=== PATIENT | female | born 1955 | race African-American/Black ===

== ENCOUNTER → 2016-05-03 | Outpatient (CLI) | payer MEDICARE, OTHER ==
[2016-02-14 23:53] VITALS: BP 168/88
[~2016-05-03] MED LIST: ALPR2TAB2 PO; BUSP5TAB PO; DIVA500T2 PO; ESTR1TAB15 PO; GABAPENTIN; HYDR-2666 PO; HYDR-971 PO; IOHEXOL 180 MG/ML 10 ML VIAL. ONE; LISINOPRIL; LOSA1TAB17 PO; METHADONE; NAPR250T2 PO; OMEP40CA5 PO; PRED50TA PO; VALP250C2 PO; XANAX; albuterol; depakote; lortab; methylPREDNISolone ACETATE 40 MG/ML VIAL. ONE; methylPREDNISolone ACETATE 80 MG/ML VIAL. ONE; norvasc
--- NOTE | 2016-05-04 06:23 | PAIN ---
DATE OF SERVICE: 05/03/2016 INITIAL CONSULTATION FOR PAIN CLINIC CHIEF COMPLAINT: Low back and left greater than right lower extremity pain. HISTORY OF PRESENT ILLNESS: This is a 61-year-old female who presents with history of pain for many years, gradually increasing over the years in the low back and bilateral lower extremities. The patient has had lumbar surgery in 1999 and again in 2013, at [facility] with good initial results, but now significant pain in the low back and lower extremities as noted, mostly in the posterior gluteus, posterior thigh, worse on the left side into the knee on the left side and into the hip and the gluteus on the right side. The patient reports sharp and shooting, stabbing, aching, ____ burning and cold sensations. The patient reports it awakens her from sleep at least once or twice at night, does affect her bowel and bladder control, but no incontinence and reports some increased urgency when the pain is worse, also affects her ability to walk, she is using a cane in her right hand to ambulate. The patient did have a MRI scan dated 03/20/2016, lumbar spine showing moderately severe diffuse lumbar spondylosis, central spinal and bilateral foraminal stenosis at L5-S1 with severe left foraminal narrowing at this level secondary to facet arthropathy and probable broad-based disk herniation and also bilateral neural foraminal narrowing, which is prominent at L4-L5 secondary to disk bulging and facet arthropathy. The patient's disability rate of 0-10, 10 being the worst is at 9 with family and home responsibilities, 10 with recreation, social activity, occupation, sexual behavior, self-care and life support activities. The patient has tried counseling, also started physical therapy in the past, has had epidural injections in 2007, all of which were helpful, but only temporary and the patient did end up having surgery in 2013 once again. PAST MEDICAL HISTORY: Significant for hypertension, hearing loss, schizophrenia, asthma, smoking, arthritis, seizures. PREVIOUS SURGERY: Includes lumbar diskectomy and fusion in 1999 and 2013. CURRENT MEDICATIONS: Include naproxen, hydrocodone, prednisone, Xanax, losartan, buspirone, valproic acid, estradiol and omeprazole. ALLERGIES: THE PATIENT IS ALLERGIC TO PENICILLIN. FAMILY HISTORY: Significant for heart attack, seizures, hypertension. SOCIAL HISTORY: The patient smokes daily, 1-2 packs currently; uses alcohol only occasionally. He is , lives with her spouse locally in [place], [place]. REVIEW OF SYSTEMS: The patient's review of systems is positive for those items mentioned in the history of present illness. All systems reviewed and otherwise negative. It is complete, full and well documented on the patient's chart. PHYSICAL EXAMINATION: VITAL SIGNS: The patient's blood pressure is 115/76, pulse 63, respirations 18, temperature 97.6 degrees Fahrenheit, height is 4 feet 11 inches, weight is 131 pounds. GENERAL: The patient is awake, alert, oriented, appropriate, very pleasant demeanor. HEENT: Head shows normocephalic, atraumatic. Extraocular movements are intact and symmetrical. Oral cavity, mucous membranes are moist and pink. Dentition is intact. NECK: Shows anterior throat supple without palpable lymphadenopathy noted. Swallow reflex is symmetrical. Neck shows full rotational motion of the cervical spine without difficulty including extension and flexion. CHEST: Shows normal on inspection. Breath sounds are clear to auscultation bilaterally. HEART: Shows S1 and S2 clear. No murmurs are auscultated. ABDOMEN: Soft, obese, nontender, nondistended. No palpable organomegaly. No rebound or guarding demonstrated. BACK: Shows spine grossly midline. Some significant flattening of lumbar lordotic curvatures noted, well-healed surgical scars extensive throughout the lumbar distribution in the midline. Lumbar paraspinous musculature shows slightly hypertrophy, but symmetrical in the upper, middle and lower distribution and is tender with palpation throughout only diffusely, but without radiation bilaterally as well. No tenderness over the sacrum or sacroiliac regions. The patient shows good rotational motion both laterally with some minor limitation with extension, but not secondary to pain, secondary to mechanical movement, inability, the patient flexes forward about 45 degrees without significant difficulty or pain reported. EXTREMITIES: Lower extremities show deep tendon reflexes at 1+ in the patellar and tendo calcaneus tendons are equal. Motor exam is approximately 4 on a scale of 5 with left dorsiflexion and extension and 5/5 on the right, quadriceps and hamstring flexion are 5/5 bilaterally. Peripheral pulses are 1+ posterior tibial and dorsalis pedis pulses. No peripheral edema is noted. No clubbing, no cyanosis. Lower extremities are warm and dry to touch, equal in color and appearance. The patient's straight leg raise noted to be positive on the left at about 45 degrees with decrease in knee flexion, right side is negative. Gaenslen's and Baron's maneuvers are negative bilaterally. The patient is able to stand, has difficulty with trying to stand on her toes, walking with a shuffling gait, appears to favor her left lower extremity slightly, but using a cane in her right hand to ambulate. IMPRESSION: 1. This is a 61-year-old female with long history of low back pain, worse over the past 2 years or so with increasing pain in the low back and left greater than right lower extremity. 2. MRI scan of lumbar spine as noted. 3. Hypertension. 4. Arthritis. 5. Seizure disorder. 6. Schizophrenia. PLAN: Options were discussed with the patient including conservative medical management, physical therapy, interventional techniques. She would like to pursue interventional techniques and these have worked well for her in the past. We discussed the lumbar epidural steroid injection using description as well as anatomical models to describe the procedure. Risks were then discussed including, but not limited to bleeding, infection, possibility of epidural hematoma and subsequent neurologic compromise, dural puncture, headaches, spinal cord and/or nerve damage, side effects of steroid medication and poor results regarding pain control. The patient understands and wishes to proceed. The patient will return to the clinic in approximately 2 weeks for followup, was counseled on return appointment, activity level and side effects to be aware of. DIAGNOSIS: Lumbar radiculopathy with lumbar herniated disk and post-lumbar laminectomy syndrome. PROCEDURE: Lumbar epidural steroid injection in translaminar approach at L5-S1 level using C-arm fluoroscopic guidance under sterile prep and drape using local anesthetic. Medications injected are 120 mg of Depo-Medrol plus 10 mL of preservative-free normal saline, 2 mL of Isovue contrast. CONDITION AT DISCHARGE: Stable. The patient tolerated the procedure well, had no complications. MARTINEZ MCCOY MD DR: KATRINA/pratibha JOB#: [id number] / [id number]
== END | disposition home or self-care (01) ==
LOC: PNCL 08:29
PROVIDERS: ATTEND Anesthesiology
DX: M51.16 Intervertebral disc disorders with radiculopathy, lumbar region (principal); M96.1 Postlaminectomy syndrome, not elsewhere classified; I10 Essential (primary) hypertension; M19.90 Unspecified osteoarthritis, unspecified site; G40.909 Epilepsy, unspecified, not intractable, without status epilepticus; F20.9 Schizophrenia, unspecified; F17.210 Nicotine dependence, cigarettes, uncomplicated; Z72.89 Other problems related to lifestyle
CPT/HCPCS: 62323; J1030; J1040; 62327

== ENCOUNTER → 2016-05-24 | Outpatient (CLI) | payer MEDICARE, OTHER ==
[2016-02-14 23:53] VITALS: BP 168/88
--- NOTE | 2016-05-24 10:22 | PAIN ---
DATE OF SERVICE: 05/24/2016 PROGRESS NOTE FOR PAIN CLINIC DIAGNOSES: Lumbar radiculopathy with lumbar herniated disk and lumbar post-laminectomy syndrome. HISTORY OF PRESENT ILLNESS: The patient is a 61-year-old female, who returns for followup status post lumbar epidural steroid injection x 1 on 05/03/2016. The patient reports only about 50% improvement for 1 day and then the pain, to return in her low back and left lower extremity. Still some spasms radiating shooting pain in the low back and left leg as it was previously rated 10 on a scale of 10. The patient reports no new motor or sensory deficits, no new bowel or bladder incontinence, but still significant pain versus walking, standing, change in positions, still awakens her from sleep at night. The patient does have an appointment to follow up with her neurosurgeon tomorrow. PHYSICAL EXAMINATION: VITAL SIGNS: Blood pressure 120/79, pulse 71, respirations 18, temperature 97.8 degrees Fahrenheit, height is 4 feet 11 inches, weighs 121 pounds. GENERAL: The patient is awake, alert, oriented, appropriate, very pleasant demeanor. HEENT: Head shows normocephalic, atraumatic. Extraocular movements are intact and symmetrical. Oral cavity, mucous membranes are moist and pink. Dentition is intact. NECK: Shows anterior throat supple without palpable lymphadenopathy noted. Swallow reflex is symmetrical. CHEST: Shows normal on inspection. Breath sounds clear to auscultation bilaterally. HEART: Shows S1 and S2 clear. ABDOMEN: Soft, nontender, nondistended. No palpable organomegaly noted. No rebound or guarding demonstrated. BACK: Shows spine grossly midline. Significant flattening of lumbar lordotic curvature with well healed extensive surgical scar, the distribution in the midline shows some moderate tenderness with palpation in the paraspinous musculature throughout the upper, middle and lower distribution bilaterally, but without radiation. EXTREMITIES: Lower extremities showed deep tendon reflexes 1+ in the patellar tendons. Motor exam is approximately 4 on a scale of 5 left lower extremity and 5/5 on the right with dorsiflexion, extension, quadriceps and hamstrings flexion. Options were discussed with the patient. We will proceed with a second lumbar epidural steroid injection today with fluoroscopic guidance. Risks were again discussed including but not limited to bleeding, infection, possibility of epidural hematoma, subsequent neurologic compromise, dural puncture, headaches, spinal cord and/or nerve damage, side effects of steroid medication and poor results regarding pain control. The patient understands and wishes to proceed. The patient will return to the clinic in approximately 2 weeks for followup. She is counseled on return appointment, activity level, and side effects to be aware of. DIAGNOSES: Lumbar radiculopathy with lumbar herniated disk and post-lumbar laminectomy syndrome. PROCEDURES: Lumbar epidural steroid injection in translaminar approach at L5-S1 level using C-arm fluoroscopic guidance under sterile prep and drape using local anesthetic. MEDICATIONS INJECTED: 120 mg Depo-Medrol plus 10 mL of preservative-free normal saline and 2 mL Isovue for contrast. CONDITION AT DISCHARGE: Stable. The patient tolerated procedure well, had no complications. MARTINEZ MCCOY MD DR: KATRINA/pratibha JOB#: [id number] / [id number]
== END | disposition home or self-care (01) ==
LOC: PNCL 08:41
PROVIDERS: ATTEND Anesthesiology
DX: M51.16 Intervertebral disc disorders with radiculopathy, lumbar region (principal); M96.1 Postlaminectomy syndrome, not elsewhere classified
CPT/HCPCS: 62323; J1030; J1040

== ENCOUNTER → 2016-06-22 | Outpatient (CLI) | payer MEDICARE, OTHER ==
[~2016-06-22] VITALS: Ht 149.9 cm; Wt 58.1 kg
[~2016-06-22] MED LIST changes: +CONTRAST GIVEN MC PRN; +ESCI10TA PO; +IOHEXOL 180 MG/ML 10 ML VIAL. IT ONE; -IOHEXOL 180 MG/ML 10 ML VIAL. ONE; +LIDOCAINE 1% / SOD BICARB 8.4% 20 ML VIAL. IJ ONE; +LISI-334 PO; +PARO20TA3 PO; +PROAIR HFA8.5 GM INH; +TIZA4TAB PO; -methylPREDNISolone ACETATE 40 MG/ML VIAL. ONE; -methylPREDNISolone ACETATE 80 MG/ML VIAL. ONE
[2016-06-22 12:52] VITALS: BP 117/68
[2016-06-22 14:30] VITALS: BP 117/89
[2016-06-22 15:00] VITALS: BP 126/68
[2016-06-22 15:30] VITALS: BP 97/61
--- NOTE | 2016-06-22 15:34 | RAD ---
Fluoroscopic lumbar myelogram and CT lumbar spine with intrathecal contrast History: Back pain. Extensive low back surgery. Comparison: CT lumbar spine 09/25/2014. Fluoroscopic lumbar myelogram Procedure narrative: Risks and benefits of the procedure were discussed with the patient. Written informed consent was obtained. Patient was laid prone on the fluoroscopy table. Secondary to extensive lumbar surgery, examination required use of a larger bore, 22-gauge spinal needle. Initially, the L4-5 level was targeted. The skin was prepped and draped in usual sterile fashion. Local anesthesia was provided with 1% lidocaine. Under fluoroscopic guidance, 22-gauge spinal needle was attempted to be inserted the thecal sac at L4-5. Inner stylet was removed. No CSF was returned. Advancement of needle was somewhat difficult secondary to patient's inability to stay still and requiring change in approach. At one time, some blood returned, but did not clear, it was uncertain if needle was thecal sac versus epidural venous plexus. Additional adjustments of the needle failed to return clear CSF. It was then decided to attempt at the L2-3 level. Patient agreed after some discussion to approach at a different level. As the skin over this area was already prepped with Betadine, local anesthesia was provided with 1% lidocaine. A new 22-gauge spinal needle was inserted into the thecal sac at the L2-3 level. Inner stylet was removed and clear CSF was returned. Under intermittent fluoroscopic visualization, 15 mL of Omnipaque 180 myelographic contrast were inserted into the thecal sac. The needle was then removed and local pressure was applied. Patient tolerated the procedure well and there were no acute ill effects. Patient was sent to the CT scanner for post procedure imaging followed by a monitoring at the observation area. Total fluoroscopic time was 1.3 minutes. 6 total fluoroscopic images were obtained. Findings: Myelographic images demonstrate no evidence of myelographic block. 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 There are 5 lumbar type vertebral bodies. Extensive laminectomy changes are seen from L1 through the L5 level. Degenerative disc disease with loss of disc height and anterior epidural defect can be seen at L1-2. Lesser degenerative disc disease is seen at other levels. There is no spondylolisthesis with flexion or extension. CT lumbar spine with intrathecal contrast Technique: After administration of intrathecal contrast (see procedure above), helical CT of the lumbar spine was performed. Axial, sagittal, and coronal reconstructions were obtained. One or more of the following individualized dose reduction techniques were utilized for the study: Automated exposure control Adjustment of mA and/or kV according to patient's size Use of iterative reconstruction technique. Findings: Alignment of the lumbar spine appears anatomic. There is no evidence of acute fracture or acute malalignment. No prevertebral soft tissue swelling is identified. No spondylolisthesis is appreciated. The conus medullaris terminates normally at the inferior L1 level. Extensive laminectomy changes are seen from L1 through L5. T12-L1 level is unremarkable. L1-2 level demonstrates anterior epidural defect which is favored represent a posterior disc osteophyte complex. Spinal canal is widely patent. There is bilateral facet hypertrophy. There is severe right and moderate-severe left neural foraminal narrowing. L2-3 level demonstrates narrowing of the disc space. Marginal disc osteophyte is seen. No significant posterior disc bulge is identified. There is mild bilateral facet hypertrophy. There is mild-moderate bilateral neural foraminal narrowing. L3-4 level demonstrates minimal disc bulge. There is right greater than left facet hypertrophy including facet osteophyte encroaching into the spinal canal at the right aspect. Laminectomy at this level was is not as wide as at the other levels. There is asymmetric posterior effacement of the right aspect of the thecal sac. Overall, there is thought to be mild spinal canal narrowing. There is mild-moderate bilateral neural foraminal narrowing. L4-5 level demonstrates mild transverse narrowing of the thecal sac with transverse dimension of 8 mm, although overall, no significant spinal canal stenosis identified. Moderate-severe bilateral facet hypertrophy is seen. There is moderate-severe left and moderate right neural foraminal narrowing. L5-S1 level demonstrates advanced bilateral facet hypertrophy. There is degenerative disc disease with vacuum disc phenomenon and loss of disc height. There is minimal anterior epidural defect, which could be small disc bulge. There is focal moderate narrowing of the thecal sac with AP dimension measuring 6 mm and some crowding of the nerve roots; thecal sac narrowing is probably secondary to postsurgical scarring. Moderate bilateral neural foraminal narrowing is seen. Impression: 1. Extensive laminectomy changes from L1 through L5. 2. Mild spinal canal narrowing at L3-4. 3. Focal moderate narrowing of the thecal sac is seen at L5-S1, probably secondary to postsurgical scarring. 4. L1-2 level demonstrates posterior disc osteophyte complex as well as bilateral facet hypertrophy creating severe right and moderate-severe left neural foraminal narrowing. 5. Lesser neural foraminal narrowing is seen at other levels as described above.
[2016-06-22 16:00] VITALS: BP 111/66
[2016-06-22 16:30] VITALS: BP 117/69
== END | disposition home or self-care (01) ==
LOC: RAD 12:06
PROVIDERS: ATTEND Neurological Surgery
DX: M54.5 Low back pain (principal)
CPT/HCPCS: 72132; 72265

== ENCOUNTER 2017-07-22 09:04 | Emergency (ER) | payer MEDICARE, OTHER ==
[2017-07-22] MEDS: HYDROcodone/APAP 5/325MG 1 TAB TABLET PO (10:18)
[2017-07-22] MEDS: CYCLOBENZAPRINE 10 MG TABLET. PO (10:18)
[2017-07-22] MEDS: NAPROXEN 500 MG TABLET PO (10:18)
== END 2017-07-22 10:50 | disposition home or self-care (01) ==
LOC: ER 09:04
DX: S30.0XXA Contusion of lower back and pelvis, initial encounter (principal); I10 Essential (primary) hypertension; Z90.710 Acquired absence of both cervix and uterus; Z88.0 Allergy status to penicillin; W18.39XA Other fall on same level, initial encounter; Y93.H2 Activity, gardening and landscaping; Y99.8 Other external cause status; Y92.89 Other specified places as the place of occurrence of the external cause
CPT/HCPCS: 72100; 99284

== ENCOUNTER 2018-01-14 09:46 | Emergency (ER) | payer MEDICARE, OTHER ==
[~2018-01-14] VITALS: Ht 149.9 cm; Wt 54.9 kg
[~2018-01-14 09:46] MED LIST changes: +BENZ100C PO; -CONTRAST GIVEN MC PRN; +DOXY100T9 PO; -ESCI10TA PO; +ESCITALOPRAM OX10 MG PO; +ESOM20CA PO; -HYDR-2666 PO; +HYDR-2758 PO; +HYDR-3164 PO; -HYDR-971 PO; -IOHEXOL 180 MG/ML 10 ML VIAL. IT ONE; -LIDOCAINE 1% / SOD BICARB 8.4% 20 ML VIAL. IJ ONE; -LOSA1TAB17 PO; +LOSA1TAB22 PO; +METH-37 PO; -NAPR250T2 PO; +NAPR250T6 PO; +TRAM50TA PO
[2018-01-14 11:20] VITALS: BP 190/93
[2018-01-14 11:29] LABS: BILIRUBIN,URINE NEGATIVE (NEG); CLARITY,URINE CLEAR; COLOR,URINE YELLOW; NITRITE,URINE NEGATIVE (NEG); PH,URINE 7.5; PROTEIN,URINE NEGATIVE (NEG-TRACE); SQUAMOUS EPITHELIAL CELL,UR MOD /LPF; UROBILINOGEN,URINE 0.2 mg/dL (0.2 mg/dL)
[2018-01-14 11:30] LABS: BACTERIA,URINE FEW /HPF (0-FEW); WBC,URINE 0 /HPF (0-4)
--- NOTE | 2018-01-14 11:34 | RAD ---
Three-view lumbar spine series Clinical indications: Low back pain after a fall 2 days ago. COMPARISON: July 22, 2017. FINDINGS: Mild levoscoliosis is seen which is stable. No compression fracture or discitis or osteolytic process or anterolisthesis is evident. Degenerative endplate spurring and mild disc space narrowing is seen throughout the lumbar spine which is stable. Again seen is a laminectomy from L1 through L5. IMPRESSION: Stable study. No acute compression fracture. Electronically signed by: Ryan Granger MD (01/14/2018 11:30 AM) [facility]
--- NOTE | 2018-01-14 11:37 | PHYS DOC ---
Past Medical History Past Medical History: Bronchitis, Hypertension, Seizure Additional Past Medical Histor: seizures Past Surgical History: Hysterectomy, Other Additional Past Surgical Histo: back sx, hernia, bilat rotator cuff Alcohol Use: Occasionally Drug Use: Cocaine Adult General Chief Complaint Chief Complaint: LOWER BACK PAIN OR INJURY [facility] HPI Patient is a 62 year old [f__sex] who presents with [] Review of Systems Review of Systems Constitutional: Denies fever or chills [] Eyes: Denies change in visual acuity, redness, or eye pain [] HENT: Denies nasal congestion or sore throat [] Respiratory: Denies cough or shortness of breath [] Cardiovascular: No additional information not addressed in HPI [] GI: Denies abdominal pain, nausea, vomiting, bloody stools or diarrhea [] : Denies dysuria or hematuria [] Musculoskeletal: Denies back pain or joint pain [] Integument: Denies rash or skin lesions [] Neurologic: Denies headache, focal weakness or sensory changes [] Endocrine: Denies polyuria or polydipsia [] All other systems were reviewed and found to be within normal limits, except as documented in this note. Allergies Allergies Allergies Coded Allergies Type Severity Reaction Last Updated Verified Penicillins Allergy Intermediate itching 10/27/13 Yes Physical Exam Physical Exam Constitutional: Well developed, well nourished, no acute distress, non-toxic appearance. [] HENT: Normocephalic, atraumatic, bilateral external ears normal, oropharynx moist, no oral exudates, nose normal. [] Eyes: PERRLA, EOMI, conjunctiva normal, no discharge. [] Neck: Normal range of motion, no tenderness, supple, no stridor. [] Cardiovascular:Heart rate regular rhythm, no murmur [] Lungs & Thorax: Bilateral breath sounds clear to auscultation [] Abdomen: Bowel sounds normal, soft, no tenderness, no masses, no pulsatile masses. [] Skin: Warm, dry, no erythema, no rash. [] Back: No tenderness, no CVA tenderness. [] Extremities: No tenderness, no cyanosis, no clubbing, ROM intact, no edema. [] Neurologic: Alert and oriented X 3, normal motor function, normal sensory function, no focal deficits noted. [] Psychologic: Affect normal, judgement normal, mood normal. [] Current Patient Data Lab Values Laboratory Tests Test 11/19/18 10:33 Urine Collection Type Unknown Urine Color Yellow Urine Clarity Clear Urine pH 7.5 Urine Specific [place] 1.020 Urine Protein Negative mg/dL (NEG-TRACE) Urine Glucose (UA) Negative mg/dL (NEG) Urine Ketones (Stick) Negative mg/dL (NEG) Urine Blood Negative (NEG) Urine Nitrite Negative (NEG) Urine Bilirubin Negative (NEG) Urine Urobilinogen Dipstick 0.2 mg/dL (0.2 mg/dL) Urine Leukocyte Esterase Negative (NEG) Urine RBC 1-2 /HPF (0-2) Urine WBC 0 /HPF (0-4) Urine Squamous Epithelial Cells Mod /LPF Urine Bacteria Few /HPF (0-FEW) EKG EKG [] Radiology/Procedures Radiology/Procedures [] PATIENT: YULY SUAZO ACCOUNT: [id number] : 1955 LOCATION: ER AGE: 62 SEX: F EXAM STATUS: REG ER ORD. PHYSICIAN: SHARLENE JACOBS APRN REASON: fell last night, point spinal tenderness PROCEDURE: LUMBAR SPINE 2-3V Three-view lumbar spine series Clinical indications: Low back pain after a fall 2 days ago. COMPARISON: July 22, 2017. FINDINGS: Mild levoscoliosis is seen which is stable. No compression fracture or discitis or osteolytic process or anterolisthesis is evident. Degenerative endplate spurring and mild disc space narrowing is seen throughout the lumbar spine which is stable. Again seen is a laminectomy from L1 through L5. IMPRESSION: Stable study. No acute compression fracture. Electronically signed by: Yumiko Granger MD (01/14/2018 11:30 AM) [facility] DICTATED and SIGNED BY: YUMIKO GRANGER MD DATE: 01/14/18 1127 Course & Med Decision Making Course & Med Decision Making Pertinent Labs and Imaging studies reviewed. (See chart for details) [] Dragon Disclaimer Dragon Disclaimer This electronic medical record was generated, in whole or in part, using a voice recognition dictation system. Departure Departure Impression: Primary Impression: Back pain Additional Impression: Fall Disposition: 01 HOME, SELF-CARE Condition: STABLE Referrals: SONIA TILLEY MD (PCP) Patient Instructions: Back Pain, Adult, Fall Prevention and Home Safety Additional Instructions: You may take ibuprofen or Tylenol for pain. There were no acute fractures noted on your x-ray. Follow-up with your primary care provider in one week if not improving or return to the emergency department if worsening. Problem Qualifiers SHARLENE JACOBS [employer] Jan 14, 2018 11:37
[2018-01-14] MEDS ORDERED: HYDROcodone/APAP 5/325MG 1 TAB TABLET PO ONE (11:45)
== END 2018-01-14 12:10 | disposition home or self-care (01) ==
LOC: ER 09:46
DX: M54.5 Low back pain (principal); G89.11 Acute pain due to trauma; M53.3 Sacrococcygeal disorders, not elsewhere classified; I10 Essential (primary) hypertension; Z90.710 Acquired absence of both cervix and uterus; Z98.890 Other specified postprocedural states; W01.0XXA Fall on same level from slipping, tripping and stumbling without subsequent striking against object, initial encounter; Y93.89 Activity, other specified; Y92.89 Other specified places as the place of occurrence of the external cause; Y99.8 Other external cause status
CPT/HCPCS: 72100; 81001; 99284

== ENCOUNTER 2018-01-23 10:11 | Emergency (ER) | payer MEDICARE, OTHER ==
[~2018-01-23] VITALS: Ht 152.4 cm; Wt 59.0 kg
[~2018-01-23 10:11] MED LIST changes: -HYDR-2758 PO; +HYDR-2761 PO
[2018-01-23 10:48] VITALS: BP 164/81
[2018-01-23] MEDS ORDERED: predniSONE 20 MG TABLET PO ONE (11:45)
[2018-01-23] MEDS ORDERED: LIDOCAINE (700MG/PATCH) PATCH. TD SCH (12:00)
[2018-01-23] MEDS ORDERED: LIDO700A39 TP (12:56)
[2018-01-23] MEDS ORDERED: PRED20TA PO (12:56)
--- NOTE | 2018-01-23 12:56 | PHYS DOC ---
Past Medical History Past Medical History: Bronchitis, Hypertension, Seizure Additional Past Medical Histor: seizures; cocaine use Past Surgical History: Hysterectomy, Other Additional Past Surgical Histo: back sx, hernia, bilat rotator cuff Alcohol Use: Occasionally Drug Use: Cocaine Adult General Chief Complaint Chief Complaint: LOWER BACK PAIN OR INJURY [facility] HPI Patient is a 62 year old [f__sex] who presents with [] Review of Systems Review of Systems Constitutional: Denies fever or chills [] Eyes: Denies change in visual acuity, redness, or eye pain [] HENT: Denies nasal congestion or sore throat [] Respiratory: Denies cough or shortness of breath [] Cardiovascular: No additional information not addressed in HPI [] GI: Denies abdominal pain, nausea, vomiting, bloody stools or diarrhea [] : Denies dysuria or hematuria [] Musculoskeletal: Denies back pain or joint pain [] Integument: Denies rash or skin lesions [] Neurologic: Denies headache, focal weakness or sensory changes [] Endocrine: Denies polyuria or polydipsia [] All other systems were reviewed and found to be within normal limits, except as documented in this note. Current Medications Current Medications Current Medications Medications (Trade) Dose Ordered Sig/Madisyn Start Time Stop Time Status Last Admin Dose Admin Lidocaine (Lidoderm) 1 patch DAILY 01/23/18 12:00 01/23/18 11:59 1 PATCH Miscellaneous (Lidoderm Patch Removal) 1 ea QHS 01/23/18 21:00 Prednisone (Prednisone) 40 mg 1X ONCE 01/23/18 11:45 01/23/18 11:46 DC 01/23/18 11:58 40 MG Allergies Allergies Allergies Coded Allergies Type Severity Reaction Last Updated Verified Penicillins Allergy Intermediate itching 10/27/13 Yes Physical Exam Physical Exam Constitutional: Well developed, well nourished, no acute distress, non-toxic appearance. [] HENT: Normocephalic, atraumatic, bilateral external ears normal, oropharynx moist, no oral exudates, nose normal. [] Eyes: PERRLA, EOMI, conjunctiva normal, no discharge. [] Neck: Normal range of motion, no tenderness, supple, no stridor. [] Cardiovascular:Heart rate regular rhythm, no murmur [] Lungs & Thorax: Bilateral breath sounds clear to auscultation [] Abdomen: Bowel sounds normal, soft, no tenderness, no masses, no pulsatile masses. [] Skin: Warm, dry, no erythema, no rash. [] Back: No tenderness, no CVA tenderness. [] Extremities: No tenderness, no cyanosis, no clubbing, ROM intact, no edema. [] Neurologic: Alert and oriented X 3, normal motor function, normal sensory function, no focal deficits noted. [] Psychologic: Affect normal, judgement normal, mood normal. [] Current Patient Data Vital Signs Vital Signs Date Time Temp Pulse Resp B/P (MAP) Pulse Ox O2 Delivery O2 Flow Rate FiO2 01/23/18 10:48 97.9 72 16 164/81 (108) 100 Room Air 97.9 EKG EKG [] Radiology/Procedures Radiology/Procedures [] Course & Med Decision Making Course & Med Decision Making 1245: On reevaluation patient reports following prednisone and Lidoderm application her lower back pain has improved. She is ambulatory at bedside unassisted with use of her cane. With patient reporting pain she is experiencing similar to when she was seen in the ER previously with no acute change no imaging or tests done at this time. Patient will follow-up with orthopedic doctor for further care and reevaluation. Will provide referral information with discharge paperwork. [] Dragon Disclaimer Dragon Disclaimer This electronic medical record was generated, in whole or in part, using a voice recognition dictation system. Departure Departure Impression: Primary Impression: Back pain Disposition: HOME, SELF-CARE Condition: STABLE Referrals: SONIA TILLEY MD (PCP) Patient Instructions: Back Pain, Adult Additional Instructions: You should call as soon as possible to schedule appointment with orthopedic doctor for further care and evaluation. Ibuprofen and/or tylenol as directed on container for pain as needed. Heat/ice compress to affected area every 3-4 hours for 20-30 minutes at a time. Scripts Prednisone (PREDNISONE) 20 Mg Tablet 40 MG PO DAILY, #4 TAB 0 Refills start 01/24/18 Prov: SUSANNAH FRANK APRN 01/23/18 Lidocaine (Lidocaine) 1 Each Adh..patch 1 EACH TP PRN Q12HR PRN for PAIN, #5 PATCH 0 Refills Apply to painful area on back- apply every 12 hours as needed- remove patch every 12 hours Prov: SUSANNAH FRANK APRN 01/23/18 REFFITT,SUSANNAH Centeno APRN Jan 23, 2018 12:56
[2018-01-23] MEDS ORDERED: PATCH REMOVAL. MC SCH (21:00)
== END 2018-01-23 13:06 | disposition home or self-care (01) ==
LOC: ER 10:11
DX: M54.5 Low back pain (principal); I10 Essential (primary) hypertension; Z98.890 Other specified postprocedural states; Z90.710 Acquired absence of both cervix and uterus; Z88.0 Allergy status to penicillin
CPT/HCPCS: 99283; J7512

== ENCOUNTER 2018-05-15 10:52 | Emergency (ER) | payer MEDICARE, OTHER ==
[~2018-05-15] VITALS: Ht 149.9 cm; Wt 58.1 kg
[~2018-05-15 10:52] MED LIST changes: +ALBU2.5V8 INH; +LIDO700A39 TP; +PRED20TA PO; -PROAIR HFA8.5 GM INH
[2018-05-15 11:20] VITALS: BP 136/72
[2018-05-15] MEDS ORDERED: AZIT250T6 PO (12:03)
[2018-05-15] MEDS ORDERED: BENZ100C PO (12:03)
[2018-05-15] MEDS ORDERED: MELO7.5T29 PO (12:03)
--- NOTE | 2018-05-15 12:03 | PHYS DOC ---
Past Medical History Past Medical History: Bronchitis, Hypertension, Seizure Additional Past Medical Histor: seizures; cocaine use Past Surgical History: Hysterectomy, Other Additional Past Surgical Histo: back sx, hernia, bilat rotator cuff Alcohol Use: Occasionally Drug Use: Cocaine Social History Narrative: pt states she smoked cocaine day before last Adult General Chief Complaint Chief Complaint: Congestion HPI HPI Patient is a 63 year old female who presents with anterior knee pain that comes and goes and she does have a history of arthritis. Patient is ambulatory. Patient states she also has nasal congestion and a cough with green mucus production. Patient states this been going on for the last week. Patient denies nausea, vomiting, diarrhea, fever, headache, dizziness, shortness of air, chest pain. Review of Systems Review of Systems Constitutional: Denies fever or chills [] Eyes: Denies change in visual acuity, redness, or eye pain [] HENT: Denies nasal congestion or sore throat [] Respiratory: cough and nasal congestion. Denies shortness of breath [] Cardiovascular: No additional information not addressed in HPI [] GI: Denies abdominal pain, nausea, vomiting, bloody stools or diarrhea [] : Denies dysuria or hematuria [] Musculoskeletal: Denies back pain or Left knee joint pain [] Integument: Denies rash or skin lesions [] Neurologic: Denies headache, focal weakness or sensory changes [] All other systems were reviewed and found to be within normal limits, except as documented in this note. Allergies Allergies Allergies Coded Allergies Type Severity Reaction Last Updated Verified Penicillins Allergy Intermediate itching 10/27/13 Yes Physical Exam Physical Exam Constitutional: Well developed, well nourished, no acute distress, non-toxic appearance. [] HENT: Normocephalic, atraumatic, bilateral external ears normal, oropharynx moist, no oral exudates, nose normal. [] Eyes: PERRLA, EOMI, conjunctiva normal, no discharge. [] Neck: Normal range of motion, no tenderness, supple, no stridor. [] Cardiovascular:Heart rate regular rhythm, no murmur [] Lungs & Thorax: Bilateral upper breath sounds clear to auscultation, low breath sounds diminished[] Abdomen: Bowel sounds normal, soft, no tenderness, no masses, no pulsatile masses. [] Skin: Warm, dry, no erythema, no rash. [] Back: No tenderness, no CVA tenderness. [] Extremities: No tenderness, no cyanosis, no clubbing, ROM intact, no edema. [] Neurologic: Alert and oriented X 3, normal motor function, normal sensory function, no focal deficits noted. [] Psychologic: Affect normal, judgement normal, mood normal. [] Current Patient Data Vital Signs Vital Signs Date Time Temp Pulse Resp B/P (MAP) Pulse Ox O2 Delivery O2 Flow Rate FiO2 05/15/18 11:20 97.6 66 18 136/72 (93) 96 Room Air 97.6 EKG EKG [] Radiology/Procedures Radiology/Procedures [] Course & Med Decision Making Course & Med Decision Making Patient is a 63 year old female who presents with anterior knee pain that comes and goes and she does have a history of arthritis. Patient is ambulatory. Patient states she also has nasal congestion and a cough with green mucus production. Patient states this been going on for the last week. Patient denies nausea, vomiting, diarrhea, fever, headache, dizziness, shortness of air, chest pain. Alert And oriented. Ambulatory with a steady gait. Patient is rating her pain a 10 out of 10. Patient's anterior left patella tender with palpation. Patient states that she smoked cocaine yesterday. Lungs are clear to auscultation upper lobes but diminished in lower lobes. Vital signs within normal limits. Afebrile. No extremity edema and no edema of the left knee that she is complaining of pain. Patient has full range of motion of the left knee and there is a positive popliteal pulse. Dragon Disclaimer Dragon Disclaimer This electronic medical record was generated, in whole or in part, using a voice recognition dictation system. Departure Departure Impression: Primary Impression: URI (upper respiratory infection) Additional Impression: Knee pain Disposition: HOME, SELF-CARE Condition: STABLE Referrals: SONIA TILLEY MD (PCP) Patient Instructions: Cough, Adult, Knee Pain Additional Instructions: Call and make an appointment with her primary care provider. Take medication as prescribed. Scripts Meloxicam (MELOXICAM) 7.5 Mg Tablet 1 TAB PO DAILY, #10 TAB Prov: ARVIND JENSEN APRN 05/15/18 Benzonatate (TESSALON PERLE) 100 Mg Capsule 1 CAP PO TID, #21 CAP Prov: ARVIND JENSEN APRN 05/15/18 Azithromycin (AZITHROMYCIN TABLET) 250 Mg Tablet 1 PKG PO UD, #6 TAB Prov: ARVIND JENSEN APRN 05/15/18 Problem Qualifiers Primary Impression: URI (upper respiratory infection) URI type: unspecified URI Qualified Codes: J06.9 - Acute upper respiratory infection, unspecified Additional Impression: Knee pain Chronicity: acute Laterality: left Qualified Codes: M25.562 - Pain in left knee ARVIND JENSEN APRN May 15, 2018 12:03
== END 2018-05-15 12:17 | disposition home or self-care (01) ==
LOC: ER 10:52
DX: M25.562 Pain in left knee (principal); J06.9 Acute upper respiratory infection, unspecified; M19.90 Unspecified osteoarthritis, unspecified site; I10 Essential (primary) hypertension; Z90.710 Acquired absence of both cervix and uterus; Z88.0 Allergy status to penicillin
CPT/HCPCS: 99283

== ENCOUNTER 2018-06-06 16:18 | Observation (INO) | payer MEDICARE, OTHER ==
[~2018-06-06] VITALS: Ht 149.9 cm; Wt 57.4 kg
[~2018-06-06 16:18] MED LIST changes: +AZIT250T6 PO; +MELO7.5T29 PO
[2018-06-06] MEDS ORDERED: IV NORMAL SALINE 1000ML BAG 1,000 ML IV SCH (16:23)
[2018-06-06] MEDS ORDERED: IPRATRPIUM/ALBUTEROL 0.5/2.5MG 3 ML NEBU. NEB ONE (16:30)
[2018-06-06] MEDS ORDERED: methylPREDNISolone SOD SUCC PF 125 MG/2 ML VIAL. IV ONE (16:30)
[2018-06-06 17:46] LABS: BASO % 0 % (0-3); EOS # 0.1 x10^3/uL (0.0-0.7); EOS % 2 % (0-3); HEMATOCRIT 46.3 % (36.0-47.0); LYMPH # 1.7 x10^3/uL (1.0-4.8); LYMPH % 35 % (24-48); MEAN CORPUSCULAR HEMOGLOBIN 27 pg (25-35); MEAN CORPUSCULAR HGB CONC 33 g/dL (31-37); MEAN CORPUSCULAR VOLUME 84 fL (79-100); MONO # 0.2 x10^3/uL (0.0-1.1); MONO % 5 % (0-9); NEUT # 2.8 x10^3uL (1.8-7.7); NEUT % 59 % (31-73); PLATELET COUNT 176 x10^3/uL (140-400); RED BLOOD COUNT 5.54 x10^6/uL (3.50-5.40); RED CELL DISTRIBUTION WIDTH 15.1 % (11.5-14.5); WHITE BLOOD COUNT 4.8 x10^3/uL (4.0-11.0)
--- NOTE | 2018-06-06 18:01 | PHYS DOC ---
Past Medical History Past Medical History: Bronchitis, Hypertension, Seizure Additional Past Medical Histor: seizures; cocaine use (GRACIE KAPLAN MD) Past Surgical History: Hysterectomy, Other Additional Past Surgical Histo: back sx, hernia, bilat rotator cuff (GRACIE KAPLAN MD) Alcohol Use: Occasionally Drug Use: Cocaine (GRACIE KAPLAN MD) Adult General Chief Complaint Chief Complaint: SHORTNESS OF BREATH HPI HPI Patient is a 63 year old female who brought in by EMS because of shortness of breath. Patient complaining of shortness of breath for 2 weeks and states she was seen her physician and taking antibiotic currently. Patient states she had nonproductive cough without fever and chills and complaining of chest soreness after cough. Patient states her cough became worse after she worked with [employer] today and called 911. Patient had active dry cough at arrival to ER and was anxious. (GRACIE KAPLAN MD) Review of Systems Review of Systems Constitutional: Denies fever or chills [] Eyes: Denies change in visual acuity, redness, or eye pain [] HENT: Denies nasal congestion or sore throat [] Respiratory: Reports cough and shortness of breath] Cardiovascular: No additional information not addressed in HPI [] GI: Denies abdominal pain, nausea, vomiting, bloody stools or diarrhea [] : Denies dysuria or hematuria [] Musculoskeletal: Denies back pain or joint pain [] Integument: Denies rash or skin lesions [] Neurologic: Denies headache, focal weakness or sensory changes [] Endocrine: Denies polyuria or polydipsia [] All other systems were reviewed and found to be within normal limits, except as documented in this note. (GRACIE KAPLAN MD) Current Medications Current Medications Current Medications Medications (Trade) Dose Ordered Sig/Madisyn Start Time Stop Time Status Last Admin Dose Admin Albuterol/ Ipratropium (Duoneb) 3 ml 1X ONCE 06/06/18 16:30 06/06/18 16:34 DC 06/06/18 16:38 3 ML Aspirin (Children'S Aspirin) 324 mg 1X ONCE 06/06/18 20:45 06/06/18 20:46 Enoxaparin Sodium (Lovenox 60mg Syringe) 60 mg 1X ONCE 06/06/18 20:30 06/06/18 20:31 UNV Lorazepam (Ativan) 1 mg 1X ONCE 06/06/18 16:30 06/06/18 16:34 DC 06/06/18 17:17 1 MG Methylprednisolone Sodium Succinate (SOLU-Medrol 125MG VIAL) 125 mg 1X ONCE 06/06/18 16:30 06/06/18 16:34 DC 06/06/18 17:15 125 MG Sodium Chloride 1,000 ml @ 1,000 mls/hr Q1H 06/06/18 16:23 06/06/18 17:22 DC 06/06/18 19:06 1,000 MLS/HR (MICHEAL SCHNEIDER DO) Allergies Allergies Allergies Coded Allergies Type Severity Reaction Last Updated Verified Penicillins Allergy Intermediate itching 10/27/13 Yes (MICHEAL SCHNEIDER DO) Physical Exam Physical Exam Constitutional: Well developed, well nourished, moderate distress, non-toxic appearance. [] HENT: Normocephalic, atraumatic, bilateral external ears normal, oropharynx moist, no oral exudates, nose normal. [] Eyes: PERRLA, EOMI, conjunctiva normal, no discharge. [] Neck: Normal range of motion, no tenderness, supple, no stridor. [] Cardiovascular:Heart rate regular rhythm, no murmur [] Lungs & Thorax: Mild respiratory distress with wheezing Abdomen: Bowel sounds normal, soft, no tenderness, no masses, no pulsatile masses. [] Skin: Warm, dry, no erythema, no rash. [] Back: No tenderness, no CVA tenderness. [] Extremities: No tenderness, no cyanosis, no clubbing, ROM intact, no edema. [] Neurologic: Alert and oriented X 3, normal motor function, normal sensory function, no focal deficits noted. [] Psychologic: Affect anxious, judgement normal, mood normal. [] (GRACIE KAPLAN MD) Current Patient Data Vital Signs Vital Signs Date Time Temp Pulse Resp B/P (MAP) Pulse Ox O2 Delivery O2 Flow Rate FiO2 06/06/18 19:00 62 20 162/79 (106) 97 Nasal Cannula 2.0 06/06/18 16:18 97.6 97.6 (MICHEAL SCHNEIDER DO) Lab Values Laboratory Tests Test 06/06/18 17:30 06/06/18 17:35 Prothrombin Time 13.2 SEC (11.7-14.0) Prothrombin Time INR 1.0 (0.8-1.1) PTT 30 SEC (24-38) White Blood Count 4.8 x10^3/uL (4.0-11.0) Red Blood Count 5.54 x10^6/uL (3.50-5.40) H Hemoglobin 15.0 g/dL (12.0-15.5) Hematocrit 46.3 % (36.0-47.0) Mean Corpuscular Volume 84 fL (79-100) Mean Corpuscular Hemoglobin 27 pg (25-35) Mean Corpuscular Hemoglobin Concent 33 g/dL (31-37) Red Cell Distribution Width 15.1 % (11.5-14.5) H Platelet Count 176 x10^3/uL (140-400) Neutrophils (%) (Auto) 59 % (31-73) Lymphocytes (%) (Auto) 35 % (24-48) Monocytes (%) (Auto) 5 % (0-9) Eosinophils (%) (Auto) 2 % (0-3) Basophils (%) (Auto) 0 % (0-3) Neutrophils # (Auto) 2.8 x10^3uL (1.8-7.7) Lymphocytes # (Auto) 1.7 x10^3/uL (1.0-4.8) Monocytes # (Auto) 0.2 x10^3/uL (0.0-1.1) Eosinophils # (Auto) 0.1 x10^3/uL (0.0-0.7) Basophils # (Auto) 0.0 x10^3/uL (0.0-0.2) Sodium Level 140 mmol/L (136-145) Potassium Level 3.4 mmol/L (3.5-5.1) L Chloride Level 101 mmol/L (98-107) Carbon Dioxide Level 27 mmol/L (21-32) Anion Gap 12 (6-14) Blood Urea Nitrogen 16 mg/dL (7-20) Creatinine 1.3 mg/dL (0.6-1.0) H Estimated GFR (Cockcroft-Gault) 50.4 BUN/Creatinine Ratio 12 (6-20) Glucose Level 103 mg/dL (70-99) H Lactic Acid Level 1.3 mmol/L (0.4-2.0) Calcium Level 8.9 mg/dL (8.5-10.1) Magnesium Level 2.2 mg/dL (1.8-2.4) Total Bilirubin 0.5 mg/dL (0.2-1.0) Aspartate Amino Transferase (AST) 28 U/L (15-37) Alanine Aminotransferase (ALT) 16 U/L (14-59) Alkaline Phosphatase 94 U/L (46-116) Creatine Kinase 70 U/L (26-192) Creatine Kinase MB (Mass) 1.3 ng/mL (0.0-3.6) Creatine Kinase MB Relative Index % (0-4) Troponin I Quantitative 0.298 ng/mL (0.000-0.055) AR-Oci-Q-Type Natriuretic Peptide 145 pg/mL (0-124) H Total Protein 8.8 g/dL (6.4-8.2) H Albumin 4.4 g/dL (3.4-5.0) Albumin/Globulin Ratio 1.0 (1.0-1.7) Laboratory Tests 06/06/18 17:35 Laboratory Tests 06/06/18 17:35 (MICHEAL SCHNEIDER DO) EKG EKG [] (GRACIE KAPLAN MD) EKG EKG: RATE OF 66 BPM, NO STEMI, SINUS RHYTHM (MICHEAL SCHNEIDER DO) Radiology/Procedures Radiology/Procedures [] (GRACIE KAPLAN MD) Radiology/Procedures CHEST XRAY: NO ACUTE DISEASE (MICHEAL SCHNEIDER DO) Course & Med Decision Making Course & Med Decision Making Pertinent Labs and Imaging studies are pending. Patient care transferred to Dr. Schneider at 1800. (GRACIE KAPLAN MD) Dragon Disclaimer Dragon Disclaimer This electronic medical record was generated, in whole or in part, using a voice recognition dictation system. (GRACIE KAPLAN MD) Departure Departure Impression: Primary Impression: SOB (shortness of breath) Additional Impressions: Chest pain Elevated troponin I level Disposition: ADMITTED INPATIENT Admitting Physician: Jeremiah Foley (MICHEAL SCHNEIDER DO) Condition: STABLE Referrals: JEREMIAH FOLEY MD (PCP) Problem Qualifiers GRACIE KAPLAN MD Jun 06, 2018 18:01 MICHEAL SCHNEIDER DO Jun 06, 2018 20:27
[2018-06-06 18:08] LABS: CALCIUM 8.9 mg/dL (8.5-10.1); CREATININE 1.3 mg/dL (0.6-1.0); GFR 50.4
[2018-06-06 18:09] LABS: POTASSIUM 3.4 mmol/L (3.5-5.1)
[2018-06-06 18:10] LABS: CREATINE KINASE 70 U/L (26-192)
[2018-06-06 18:12] LABS: ALBUMIN 4.4 g/dL (3.4-5.0); TOTAL BILIRUBIN 0.5 mg/dL (0.2-1.0); TOTAL PROTEIN 8.8 g/dL (6.4-8.2)
[2018-06-06 18:32] LABS: PROTHROMBIN TIME PATIENT 13.2 SEC (11.7-14.0)
[2018-06-06] MEDS ORDERED: ACETAMINOPHEN 325 MG TABLET. PO PRN (20:30)
[2018-06-06] MEDS ORDERED: NITROGLYCERIN SUBLINGUAL 0.4 MG BOTTLE OF 25. SL PRN (20:30)
[2018-06-06] MEDS ORDERED: ONDANSETRON PF 4 MG/2 ML VIAL. IV PRN (20:30)
--- NOTE | 2018-06-06 20:30 | EKG ---
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
[2018-06-06] MEDS ORDERED: ASPIRIN CHEWABLE 81 MG TABLET. PO ONE (20:45)
[2018-06-06 21:30] VITALS: BP 138/78
[2018-06-06] MEDS: IPRATRPIUM/ALBUTEROL 0.5/2.5MG 3 ML NEBU. NEB SCH (21:30)
[2018-06-06] MEDS ORDERED: ALPRAZolam 1 MG TABLET PO PRN (23:00)
[2018-06-06] MEDS ORDERED: HYDROcodone/APAP 7.5/325MG 1 TAB TABLET PO PRN (23:00)
[2018-06-06 23:17] VITALS: BP 125/66
[2018-06-06] MEDS: ENOXAPARIN 40 MG/0.4 ML SYRINGE. SQ SCH (23:42)
[2018-06-07 03:47] VITALS: BP 141/71
[2018-06-07 04:58] LABS: BASO % 0 % (0-3); EOS % 0 % (0-3); HEMATOCRIT 42.5 % (36.0-47.0); HEMOGLOBIN 13.8 g/dL (12.0-15.5); LYMPH # 0.8 x10^3/uL (1.0-4.8); LYMPH % 20 % (24-48); MEAN CORPUSCULAR HEMOGLOBIN 27 pg (25-35); MEAN CORPUSCULAR HGB CONC 32 g/dL (31-37); MEAN CORPUSCULAR VOLUME 83 fL (79-100); MONO # 0.1 x10^3/uL (0.0-1.1); MONO % 2 % (0-9); NEUT # 3.2 x10^3uL (1.8-7.7); NEUT % 78 % (31-73); PLATELET COUNT 179 x10^3/uL (140-400); RED BLOOD COUNT 5.15 x10^6/uL (3.50-5.40); RED CELL DISTRIBUTION WIDTH 14.9 % (11.5-14.5); WHITE BLOOD COUNT 4.1 x10^3/uL (4.0-11.0)
[2018-06-07 05:13] LABS: CALCIUM 9.2 mg/dL (8.5-10.1); CREATININE 1.4 mg/dL (0.6-1.0); GFR 46.3; POTASSIUM 4.1 mmol/L (3.5-5.1)
[2018-06-07 07:00] VITALS: BP 166/81
--- NOTE | 2018-06-07 07:37 | RAD ---
Examination: PORTABLE CHEST 1V History: SHORTNESS OF BREATH Comparison/Correlation: 10/31/2017 portable chest x-ray exam Findings: Portable frontal view chest was obtained. [place] sutures involve the left humeral head. Heart size is borderline. No infiltrate or pleural effusion. No pneumothorax. No acute bony process. Impression: No active disease. Electronically signed by: Sammy Fitzgerald MD (06/07/2018 7:34 AM) [facility]
[2018-06-07] MEDS: IPRATRPIUM/ALBUTEROL 0.5/2.5MG 3 ML NEBU. NEB SCH ×4 (08:34→20:31)
--- NOTE | 2018-06-07 08:45 | NUR ---
Patient stated she was in pain & that she wanted something in her IV "to make her go to sleep". No IV meds are currently ordered. Lortab was administered.
--- NOTE | 2018-06-07 09:02 | PDOC2 ---
CARDIAC CONSULT DATE OF CONSULT Date of Consult DATE: 06/07/18 TIME: 08:38 REASON FOR CONSULT Reason for Consult: Chest pain, elevated trop REFERRING PHYSICIAN Referring Physician: Jerad SOURCE Source: Chart review, Patient HISTORY OF PRESENT ILLNESS HISTORY OF PRESENT ILLNESS This is a 63 yo AA female admitted for complains of chest pain. Apparently she was cleaning her bathroom yesterday and and blaming it on the fumes that made her start coughing. She was significantly SOA at that time and was having chest tightness. This lasted about 2 hours. Before this event she has been having chest pain in the last month and occurs sometimes with exertion with HORTON. She also was in ED on 05/14/2018 to which she was treated for URI which is now better. With her CP comes with diaphoresis but no jaw tightness, arm heaviness, nausea or vomiting. Denies any recent long distance travel, hx of recent falls or injury, VTE, CAD, or any arrhythmias. She is a heavy smoker and verbalized using cocaine every other week but this week with her associated increase in chest pain frequency she smoke cocaine Sunday and Sunday this week. She does have GERD but controlled and no routine NSAID use. PAST MEDICAL HISTORY Cardiovascular: HTN Pulmonary: Asthma CENTRAL NERVOUS SYSTEM: Seizure GI: GERD Heme/Onc: No pertinent hx Hepatobiliary: No pertinent hx Psych: Anxiety, Depression, Schizophrenia Musculoskeletal: low back pain, Osteoarthritis Infectious disease: No pertinent hx ENT: No pertinent hx Renal/: No pertinent hx Endocrine: No pertinent hx Dermatology: No pertinent hx PAST SURGICAL HISTORY Past Surgical History: Arthroscopy (bilateral RTC repair), Hysterectomy, Other (back surgery low x2) FAMILY HISTORY Family History: Heart Disease (mother) SOCIAL HISTORY Smoke: # pack years (72) ALCOHOL: occassional Drugs: Cocaine Lives: with Family CURRENT MEDICATIONS CURRENT MEDICATIONS Current Medications Medications (Trade) Dose Ordered Sig/Madisyn Route PRN Reason Start Time Stop Time Status Last Admin Dose Admin Sodium Chloride 1,000 ml @ 1,000 mls/hr Q1H IV 06/06/18 16:23 06/06/18 17:22 DC 06/06/18 19:06 Albuterol/ Ipratropium (Duoneb) 3 ml 1X ONCE NEB 06/06/18 16:30 06/06/18 16:34 DC 06/06/18 16:38 Methylprednisolone Sodium Succinate (SOLU-Medrol 125MG VIAL) 125 mg 1X ONCE IV 06/06/18 16:30 06/06/18 16:34 DC 06/06/18 17:15 Lorazepam (Ativan) 1 mg 1X ONCE IV 06/06/18 16:30 06/06/18 16:34 DC 06/06/18 17:17 Albuterol/ Ipratropium (Duoneb) 3 ml RTQID NEB 06/06/18 21:00 06/08/18 20:59 06/07/18 08:34 Enoxaparin Sodium (Lovenox 40mg Syringe) 40 mg Q24H SQ 06/06/18 23:00 06/06/18 23:42 ALLERGIES ALLERGIES: Coded Allergies: Penicillins (Verified Allergy, Intermediate, itching, 10/27/13) ROS Review of System 14 point ROS evaluated with pertinent positives noted per HPI PHYSICAL EXAM General: Alert, Oriented X3, Cooperative, No acute distress HEENT: Atraumatic, Mucous membr. moist/pink Lungs: Clear to auscultation, Normal air movement Heart: Regular rate (SR), Normal S1, Normal S2 (with physiologic split), No murmurs Abdomen: Soft, No tenderness Extremities: No cyanosis, No edema Skin: No breakdown Neuro: Normal speech, Sensation intact Psych/Mental Status: Mental status NL, Mood NL MUSCULOSKELETAL: Osteoarthritic changes both hands VITALS VITALS Vital Signs Date Time Temp Pulse Resp B/P (MAP) Pulse Ox O2 Delivery O2 Flow Rate FiO2 06/07/18 08:34 96 Nasal Cannula 2.0 06/07/18 07:00 98.2 61 18 166/81 (109) 98.2 LABS Lab: Laboratory Tests Test 06/06/18 17:30 06/06/18 17:35 06/07/18 00:30 06/07/18 04:50 Prothrombin Time 13.2 SEC (11.7-14.0) Prothromb Time International Ratio 1.0 (0.8-1.1) Activated Partial Thromboplast Time 30 SEC (24-38) White Blood Count 4.8 x10^3/uL (4.0-11.0) 4.1 x10^3/uL (4.0-11.0) Red Blood Count 5.54 x10^6/uL (3.50-5.40) 5.15 x10^6/uL (3.50-5.40) Hemoglobin 15.0 g/dL (12.0-15.5) 13.8 g/dL (12.0-15.5) Hematocrit 46.3 % (36.0-47.0) 42.5 % (36.0-47.0) Mean Corpuscular Volume 84 fL (79-100) 83 fL (79-100) Mean Corpuscular Hemoglobin 27 pg (25-35) 27 pg (25-35) Mean Corpuscular Hemoglobin Concent 33 g/dL (31-37) 32 g/dL (31-37) Red Cell Distribution Width 15.1 % (11.5-14.5) 14.9 % (11.5-14.5) Platelet Count 176 x10^3/uL (140-400) 179 x10^3/uL (140-400) Neutrophils (%) (Auto) 59 % (31-73) 78 % (31-73) Lymphocytes (%) (Auto) 35 % (24-48) 20 % (24-48) Monocytes (%) (Auto) 5 % (0-9) 2 % (0-9) Eosinophils (%) (Auto) 2 % (0-3) 0 % (0-3) Basophils (%) (Auto) 0 % (0-3) 0 % (0-3) Neutrophils # (Auto) 2.8 x10^3uL (1.8-7.7) 3.2 x10^3uL (1.8-7.7) Lymphocytes # (Auto) 1.7 x10^3/uL (1.0-4.8) 0.8 x10^3/uL (1.0-4.8) Monocytes # (Auto) 0.2 x10^3/uL (0.0-1.1) 0.1 x10^3/uL (0.0-1.1) Eosinophils # (Auto) 0.1 x10^3/uL (0.0-0.7) 0.0 x10^3/uL (0.0-0.7) Basophils # (Auto) 0.0 x10^3/uL (0.0-0.2) 0.0 x10^3/uL (0.0-0.2) Sodium Level 140 mmol/L (136-145) 140 mmol/L (136-145) Potassium Level 3.4 mmol/L (3.5-5.1) 4.1 mmol/L (3.5-5.1) Chloride Level 101 mmol/L (98-107) 103 mmol/L (98-107) Carbon Dioxide Level 27 mmol/L (21-32) 26 mmol/L (21-32) Anion Gap 12 (6-14) 11 (6-14) Blood Urea Nitrogen 16 mg/dL (7-20) 19 mg/dL (7-20) Creatinine 1.3 mg/dL (0.6-1.0) 1.4 mg/dL (0.6-1.0) Estimated GFR (Cockcroft-Gault) 50.4 46.3 BUN/Creatinine Ratio 12 (6-20) Glucose Level 103 mg/dL (70-99) 165 mg/dL (70-99) Lactic Acid Level 1.3 mmol/L (0.4-2.0) Calcium Level 8.9 mg/dL (8.5-10.1) 9.2 mg/dL (8.5-10.1) Magnesium Level 2.2 mg/dL (1.8-2.4) Total Bilirubin 0.5 mg/dL (0.2-1.0) Aspartate Amino Transf (AST/SGOT) 28 U/L (15-37) Alanine Aminotransferase (ALT/SGPT) 16 U/L (14-59) Alkaline Phosphatase 94 U/L (46-116) Creatine Kinase 70 U/L (26-192) Creatine Kinase MB (Mass) 1.3 ng/mL (0.0-3.6) Creatine Kinase MB Relative Index % (0-4) Troponin I Quantitative 0.298 ng/mL (0.000-0.055) 0.535 ng/mL (0.000-0.055) 0.409 ng/mL (0.000-0.055) WK-[id number]-Type Natriuretic Peptide 145 pg/mL (0-124) Total Protein 8.8 g/dL (6.4-8.2) Albumin 4.4 g/dL (3.4-5.0) Albumin/Globulin Ratio 1.0 (1.0-1.7) ASSESSMENT/PLAN ASSESSMENT/PLAN 1. NSTEMI: Peaked trop at 0.5. No EKG changes so far by comparison 2. HTN: initially labile 3. HRT use with heavy tobacco use 4. Cocaine abuse 5. Suspect COPD 6. Hx of paranoid schizophrenia and seizures Recommendations 1. TTE, repeat EKG, UDS. Check lipids 2. NSTEMI/symptoms could be from vasopasm, await tests as above, ischemic workup potentially as an outpt unless significant changes with pending tests 3. Smoking and cocaine cessation 4. Will need alternative to HRT with noted heavy tobacco use. 5. ASA and continue home BP meds. lovenox given last night ERMIAS DALTON APRN Jun 07, 2018 09:02
--- NOTE | 2018-06-07 09:11 | EKG ---
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
[2018-06-07] MEDS: ASPIRIN ENTERIC COATED 81 MG TABLET.DR. PO SCH (09:15)
[2018-06-07 10:08] LABS: CHOLESTEROL/HDL RATIO 2.6
--- NOTE | 2018-06-07 10:37 | CARD ---
MR#: [id number] Date of Study: 06/07/2018 Ordering Physician: ERMIAS DALTON, Referring Physician: SONIA TILLEY Tech: Roxann Walton OLIVIA APPROVED REPORT EXAM: Two-dimensional and M-mode echocardiogram with Doppler and color Doppler. Other Information Quality : GoodHR: 60bpm Rhythm : NSR INDICATION Non STEMI 2D DIMENSIONS RVDd2.6 (2.9-3.5cm)Left Atrium(2D)3.6 (1.6-4.0cm) IVSd1.0 (0.7-1.1cm)Aortic Root(2D)2.3 (2.0-3.7cm) LVDd4.1 (3.9-5.9cm)LVOT Diameter1.8 (1.8-2.4cm) PWd1.0 (0.7-1.1cm)LVDs2.7 (2.5-4.0cm) FS (%) 34.3 %SV47.4 ml M-Mode DIMENSIONS Left Atrium(MM)3.67 (2.5-4.0cm)Aortic Root2.24 (2.2-3.7cm) Aortic Valve AoV Peak Florentino.162.6cm/sAoV VTI33.7cm AO Peak GR.10.6mmHgLVOT Peak Florentino.107.1cm/s AO Mean GR.5mmHgAVA (VMAX)1.74cm2 ARYA (VTI)1.80cm2 Mitral Valve MV E Xytytdfa09.6cm/sMV E Peak Gr.4mmHg MV DECEL [id number] A Wbltzofd58.7cm/s MV E Mean Gr.2mmHgE/A Ratio1.0 MV A [id number] Pulmonary Valve PV Peak Xhtlvilu779.1cm/s Tricuspid Valve TR P. Dxogybmj778zc/sRAP JGKLGSRE0ncGr TR Peak Gr.64xcEmBWJQ46cwXf LEFT VENTRICLE The left ventricle is normal size. There is normal left ventricular wall thickness. The left ventricu lar systolic function is normal and the ejection fraction is within normal range. The Ejection Fracti on is 60-65%. There is normal LV segmental wall motion. Transmitral Doppler flow pattern is Grade I-a bnormal relaxation pattern. RIGHT VENTRICLE The right ventricle is normal size. There is normal right ventricular wall thickness. The right ventr icular systolic function is normal. ATRIA The left atrium size is normal. The right atrium size is normal. The interatrial septum is intact wit h no evidence for an atrial septal defect or patent foramen ovale as noted on 2-D or Doppler imaging. AORTIC VALVE The aortic valve is normal in structure and function. The aortic valve is trileaflet. Doppler and Col or Flow revealed no significant aortic regurgitation. There is no significant aortic valvular stenosi s. There is no aortic valvular vegetation. MITRAL VALVE The mitral valve is normal in structure and function. There is no evidence of mitral valve prolapse. There is no mitral valve stenosis. Doppler and Color-flow revealed trace mitral regurgitation. TRICUSPID VALVE The tricuspid valve is normal in structure and function. Doppler and Color Flow revealed trace tricus pid regurgitation. The PA pressure was estimated at 20 mmHg. There is no tricuspid valve prolapse or vegetation. There is no tricuspid valve stenosis. PULMONIC VALVE The pulmonic valve is not well visualized. GREAT VESSELS The aortic root is normal in size. The ascending aorta is normal in size. The IVC is normal in size a nd collapses >50% with inspiration. PERICARDIAL EFFUSION There is no evidence of significant pericardial effusion. Critical Notification Critical Value: No <Conclusion> The left ventricle is normal size. The left ventricular systolic function is normal and the ejection fraction is within normal range. The Ejection Fraction is 60-65%. There is no significant aortic valvular stenosis. Doppler and Color Flow revealed no significant aortic regurgitation. Doppler and Color-flow revealed trace mitral regurgitation. Doppler and Color Flow revealed trace tricuspid regurgitation. The PA pressure was estimated at 20 mmHg. Signed by : Dung Urena MD Electronically Approved : 06/07/2018 10:36:48
[2018-06-07 11:00] VITALS: BP 151/73
[2018-06-07] MEDS: PANTOPRAZOLE 40 MG TABLET.DR. PO SCH (11:02)
[2018-06-07] MEDS: DIVALPROEX DELAYED RELEASE 500 MG TABLET.DR. PO SCH (11:02)
[2018-06-07] MEDS: hydroCHLOROthiazide 25 MG TABLET PO SCH (11:03)
[2018-06-07] MEDS: LOSARTAN POTASSIUM 50 MG TABLET. PO SCH (11:04)
[2018-06-07] MEDS: amLODIPine BESYLATE 5 MG TABLET PO SCH (11:09)
[2018-06-07] MEDS: ESTRADIOL 1 MG TABLET. PO SCH (11:10)
[2018-06-07] MEDS: OLANZapine 5 MG TABLET PO SCH (11:13)
[2018-06-07] MEDS: CITALOPRAM 20 MG TABLET. PO SCH (11:15)
--- NOTE | 2018-06-07 11:40 | NUR ---
Patient refused aspirin this morning. Told patient it was for her heart & she still refused. Patient stated she "can't take that, it makes her itch." Patient has been agitated this morning also.
[2018-06-07 12:05] LABS: BILIRUBIN,URINE NEGATIVE (NEG); CLARITY,URINE CLEAR; COLOR,URINE YELLOW; NITRITE,URINE NEGATIVE (NEG); PROTEIN,URINE 30 mg/dL (NEG-TRACE); UROBILINOGEN,URINE 0.2 mg/dL (0.2 mg/dL)
[2018-06-07 12:08] LABS: BARBITURATES NEG (NEG); BENZODIAZEPINES NEG (NEG); CANNABINOIDS NEG (NEG); COCAINE POS (NEG); METHADONE NEG (NEG); OPIATES POS (NEG); PHENCYCLIDINE NEG (NEG)
[2018-06-07 12:09] LABS: AMPHETAMINE/METHAMPHETAMINE NEG (NEG)
[2018-06-07 12:24] LABS: BACTERIA,URINE MANY /HPF (0-FEW); SQUAMOUS EPITHELIAL CELL,UR MANY /LPF
--- NOTE | 2018-06-07 14:41 | NUR ---
pt is very somnolent. when aroused she can only stay awake for about 20-30 seconds. unable to get her HR above 80 on the 30mcg/kg/min dobutamine gtt. called Carlos CORCORAN and he talked w/ Dr. Mccarty. it was decided to stop gtt and test at this time. notified her nurse Britt CALL room 263. Addendum: 06/07/18 at 1939 by BRITT RAMSEY RN Verified patient's belongings in room. 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 Patient was awake & alert before going down for stress test today but when she returned to unit she was very somnolent. Patient easily awakened for RN, cardiac care unit nurse was placed back on, but then fell right back to sleep. BP & HR on low side. Dr. Foley notified of this. No discharge order for today. Will continue to monitor.
--- NOTE | 2018-06-07 14:43 | HP ---
ADMIT DATE: 06/06/2018 CHIEF COMPLAINT: Shortness of breath. HISTORY OF PRESENT ILLNESS AND HOSPITAL COURSE: This patient is a 63-year-old female who came to Emergency Room with a complaint of shortness of breath. She told in the Emergency Room, she had recently been on antibiotics and was not improving. She complained also of some chest soreness. She admits to being out of town and using cocaine within the last week. She says she has a 24-hour history of increasing shortness of breath and cough with chest discomfort. During ER evaluation, she was found to have elevated troponin; therefore, she was admitted for cardiac evaluation. PAST MEDICAL HISTORY: Significant for paranoid schizophrenia, polysubstance abuse, chronic back pain, hypertension, high cholesterol, esophageal reflux disease, seizure disorder. MEDICATIONS ON ADMISSION: Losartan/HCTZ 100/25 one daily, amlodipine 5 mg daily, Zyprexa 20 mg daily, Lexapro 10 mg daily, estrogen 1 mg daily, Prilosec 40 mg daily, Depakote 500 mg 1 in the morning and 2 in the evening. She uses local medications of Biofreeze and Voltaren gel when available. The patient has significant compliance issues. FAMILY HISTORY: Significant for mother who with heart attack who also had seizures and hypertension and father who with heart disease and hypertension. He also had seizure decision issues. SOCIAL HISTORY: The patient is a known crack cocaine user. She continues to smoke over a pack a day up to 4 packs a day per history. She has some social support from children. ALLERGIES: THE PATIENT HAS ALLERGY TO PENICILLIN, WHICH CAUSES HER TO ITCH. PAST SURGICAL HISTORY: Hernia repair, rotator cuff surgery x 2 and lumbar back surgery x 2. REVIEW OF SYSTEMS: Significant for a 24-hour history of increasing cough and shortness of breath with some chest discomfort. She denies diaphoresis, nausea, vomiting, diarrhea, radiation or fever. SIGNIFICANT LABORATORY DATA: Revealed normal white count, no evidence of anemia, renal function revealed a creatinine of 1.39. Cholesterol levels are normal. Troponin was elevated. Troponins were 0.535, 0.409, 0.236 and declining in early hospitalization. ASSESSMENT: 1. Non-ST elevated myocardial infarction. 2. Hypertension. 3. Cocaine abuse. 4. Paranoid schizophrenia. 5. Seizure disorder. 6. Suspected history of chronic obstructive pulmonary disease. 7. Tobacco abuse. 8. Chronic back pain. PLAN: To proceed with cardiology evaluation, adjust medications and discharge to home when stable. SONIA TILLEY MD DR: JALYN/pratibha JOB#: [id number] / [id number]
[2018-06-07 15:20] VITALS: BP 100/47
--- NOTE | 2018-06-07 15:55 | EKG ---
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
--- NOTE | 2018-06-07 16:17 | NUR ---
SS following for discharge planning. SS reviewed pt chart. Pt is from home with spouse and is currently requiring oxygen. No discharge needs noted at this time. SS will continue to follow for discharge planning.
--- NOTE | 2018-06-07 19:15 | RAD ---
MR#: [id number] Date of Study: 06/07/2018 Ordering Physician: ERMIAS DALTON, Referring Physician: GILL ROMERO Tech: Norma Perez NMTCB, ARRAndrew (R) (N) APPROVED REPORT Test Type: Pharmacological Stress Nurse/Tech: Haley Suarez R.N. Test Indications: c/p Cardiac History: htn, cocaine use, smoker Medications: See Electronic Medical Record Medical History: See Electronic Medical Record Resting ECG: SB, several leads w/ inverted T wave. Resting Heart Rate: 52 bpm Resting Blood Pressure: 106/52mmHg Pretest Chest Pain: No chest pain Nurse/Tech Notes S1S2, lungs CTA Consent: The procedure was explained to the patient in lay terms. Informed consent was witnessed. Jhoan eout was entered into [employer]. History and Stress Test performed by JESÚS Strong, JOSE ALBERTOT (R) (N) Pharm. Details Pharmacologic stress testing was performed using Dobutamine with a maximal infusion of 30 mcg/mg/min. Stress Symptoms No chest pain or symptoms.- HR was not getting faster like it needed to be. Notified Carlos Dipper Machine Operator maggie ing the issues w/ getting pt's HR and her somnolence. He discussed case w/ Dr. Mccarty who decided to stop test at this time. POST EXERCISE Reason for Termination: HR not getting fast enough for accurate test even though dobutamine gtt was u pto 30/mcg/kg/min Max HR: 87 bpm Max Blood Pressure: 157/67mmHg Blood Pressure response to exercise: Normal blood pressure response during stress. Heart Rate response to exercise: did not get fast very well- unable to get above 82 Chest Pain: No. Arrhythmia: Yes. towards the end of the test on the dobutamine gtt she had what appeared to be a drop ped qrs(minute 13:43:55) and she had some pacs after that. Some of the inverted T waves in baseline b ecame upright at the end. ST Change: No. Imaging Protocol IMAGE PROTOCOL: Rest Tc-99m/stress Tc-99m 1 day Rest: Stress: Viability: Radiopharm.Tc99m Sestamibi Moiz63tVx Duration 16min. Img Date 06/07/2018 Inj-Img [id number]. Rest Admin Site:IV - Right AntecubitalAdministrator:JESÚS Strong, ARRT (R)(N) LV Perfusion Resting nuclear images demonstrate a very minimal anterior wall perfusion defect. Stress images were not able to be obtained. This was a non-gated study. LV Perf. Quant 17 Seg. SRS0.00 Stress Defect Extent (% LAD)Rest Defect Extent (% LAD)0.00Rev. Defect Extent (% LAD) Stress Defect Extent (% LCX) Rest Defect Extent (% LCX)0.00Rev. Defect Extent (% LCX) Stress Defect Extent (% RCA)Rest Defect Extent (% RCA)0.00Rev. Defect Extent (% RCA) Stress Defect Extent (% MORENITA)Rest Defect Extent (% MORENITA)0.00Rev. Defect Extent (% MORENITA) Other Information Quality:Average Conclusion 1. Nondiagnostic stress test 2. Rest only images obtained with minimal anterior wall defect. Non-gated study. 3. Baseline EKG suggestive of LVH with repolarization changes and anterior T-wave inversions possibly suggestive of ischemia, patient with known history of cocaine abuse. No significant changes on stres s EKG. 4. Dobutamine infusion given to the patient due to difficulty with treadmill and at 30 mcg/kg/m the p atient did not achieve target heart rate and therefore stress tracer was not administered. Signed by : Lb Delarosa, Electronically Approved : 06/07/2018 19:14:54
[2018-06-07 19:20] VITALS: BP 99/49
[2018-06-07] MEDS: ENOXAPARIN 40 MG/0.4 ML SYRINGE. SQ SCH (20:45)
[2018-06-07] MEDS ORDERED: DIVALPROEX DELAYED RELEASE 500 MG TABLET.DR. PO SCH (21:00)
[2018-06-07] MEDS ORDERED: ATORVASTATIN CALCIUM 10 MG TABLET. PO SCH (21:00)
[2018-06-07 23:38] VITALS: BP 92/39
[2018-06-08 03:37] VITALS: BP 98/49
[2018-06-08 07:00] VITALS: BP 109/52
[2018-06-08] MEDS: IPRATRPIUM/ALBUTEROL 0.5/2.5MG 3 ML NEBU. NEB SCH ×2 (08:07→12:00)
[2018-06-08] MEDS: LOSARTAN POTASSIUM 50 MG TABLET. PO SCH (09:00)
[2018-06-08] MEDS: amLODIPine BESYLATE 5 MG TABLET PO SCH (09:00)
[2018-06-08 11:00] VITALS: BP 113/54
[2018-06-08] MEDS ORDERED: DIVA500T2 PO ×2 (13:05)
[2018-06-08] MEDS ORDERED: OLAN5TAB9 PO (13:05)
[2018-06-08] MEDS: ASPIRIN ENTERIC COATED 81 MG TABLET.DR. PO SCH (13:08)
[2018-06-08] MEDS: CITALOPRAM 20 MG TABLET. PO SCH (13:09)
[2018-06-08] MEDS: PANTOPRAZOLE 40 MG TABLET.DR. PO SCH (13:09)
[2018-06-08] MEDS: OLANZapine 5 MG TABLET PO SCH (13:09)
[2018-06-08] MEDS: DIVALPROEX DELAYED RELEASE 500 MG TABLET.DR. PO SCH (13:09)
[2018-06-08] MEDS: ESTRADIOL 1 MG TABLET. PO SCH (13:09)
[2018-06-08] MEDS: hydroCHLOROthiazide 25 MG TABLET PO SCH (13:10)
--- NOTE | 2018-06-08 13:15 | PDOC3 ---
Discharge Summary [facility] Date of Admission: Jun 06, 2018 Discharge Date: Jun 08, 2018 Admitting Diagnosis chest pain Final Diagnosis NSTEMI from cocaine use CONSULTS cardiology Procedures MPI Brief Hospital Course Ms. Ragsdale is a 63 old who presented withchest pain and SOA and found to have had a NSTEMI per enzymes, her drug screen was positive for cocaine and she admitted to smoking crack. She has a hx of mental illness and seizure disorder. She become hypotensive once her routine BP meds were given and needed a fluid bolus. She had an unremarkable stress MPI though and is now back to her baseline and ready for discharge Patient History: FH: HTN (hypertension) G8 BROTHER 33 FATHER 32 MOTHER G8 SISTER FH: heart attack 33 FATHER 32 MOTHER FH: kidney failure G8 SON FH: lupus G8 DAUGHTER Disposition home CONDITION AT DISCHARGE: Improved, Stable Diet cardiac, avoid cocaine Scheduled Escitalopram Oxalate (Escitalopram Oxalate), 1 TAB PO HS, (Reported) Estradiol (Estradiol), 1 TAB PO DAILY, (Reported) Losartan/Hydrochlorothiazide (Losartan-Hctz 100-25 Mg Tab), 1 TAB PO DAILY, ( Reported) Omeprazole (Omeprazole), 40 MG PO DAILY, (Reported) Discontinued Medications Albuterol Sulfate (Proair Hfa Inhaler), 1 PUFF INH PRN Q6HRS PRN for SHORTNESS OF BREATH, (Reported) Albuterol Sulfate (Proair Hfa Inhaler), 1-2 PUFF INH PRN Q6HRS PRN for SHORTNESS OF BREATH Alprazolam (Xanax), 1 TAB PO DAILY, (Reported) Azithromycin (Azithromycin Tablet), 1 PKG PO UD Benzonatate (Tessalon Perle), 1 CAP PO TID PRN for COUGH Benzonatate (Tessalon Perle), 1 CAP PO TID Buspirone Hcl (Buspirone Hcl), 5 MG PO TID, (Reported) Divalproex Sodium (Depakote), 1 TAB PO TID, (Reported) Doxycycline Hyclate (Doxycycline Hyclate), 1 TAB PO BID Esomeprazole Magnesium (Nexium Capsule), 1 CAP PO DAILY Hydrocodone Bit/Acetaminophen (Hydrocodone-Apap 5-325 ), 1 TAB PO PRN Q6HRS PRN for PAIN Lidocaine (Lidocaine), 1 EACH TP PRN Q12HR PRN for PAIN Lisinopril (Lisinopril), 1 TAB PO DAILY, (Reported) Meloxicam (Meloxicam), 1 TAB PO DAILY Methocarbamol (Robaxin), 1 TAB PO TID Naproxen (Naproxen), 250 MG PO BIDAC Paroxetine Hcl (Paroxetine Hcl), 1 TAB PO DAILY, (Reported) Prednisone (Prednisone), 1 TAB PO DAILY Prednisone (Prednisone), 40 MG PO DAILY Tizanidine Hcl (Tizanidine Hcl), 1 TAB PO Q6HRS PRN for PAIN, (Reported) Tramadol Hcl (Tramadol Hcl), 50 MG PO Q6HRS PRN for PAIN Kerri VALERIO MD Jun 08, 2018 13:14
== END 2018-06-08 15:00 | disposition home or self-care (01) ==
LOC: ER 16:18 → 2 SOUTH 20:20
PROVIDERS: ADMIT Family Medicine; ATTEND Family Medicine
DX: I21.4 Non-ST elevation (NSTEMI) myocardial infarction (principal); F17.210 Nicotine dependence, cigarettes, uncomplicated; J40 Bronchitis, not specified as acute or chronic; I10 Essential (primary) hypertension; F14.10 Cocaine abuse, uncomplicated; R07.89 Other chest pain; M54.9 Dorsalgia, unspecified; G89.29 Other chronic pain; K21.9 Gastro-esophageal reflux disease without esophagitis; F20.0 Paranoid schizophrenia; Z82.49 Family history of ischemic heart disease and other diseases of the circulatory system; Z91.19 Patient's noncompliance with other medical treatment and regimen; I95.9 Hypotension, unspecified; R56.9 Unspecified convulsions; G40.909 Epilepsy, unspecified, not intractable, without status epilepticus; Z90.710 Acquired absence of both cervix and uterus
CPT/HCPCS: 36415; 71045; 78451; 80048; 80053; 80061; 80307; 81001; 82553; 83605; 83735; 83880; 84484; 85025; 85610; 85730; 93005; 93306; 94640; 94760; 96365; 96366; 96372; 96375; 99284; A9500; G0378; J1250; J1650; J2060; J2930; J7030; J7620; G0379

== ENCOUNTER 2019-08-14 11:38 | Emergency (ER) | payer MEDICARE, OTHER ==
[~2019-08-14] VITALS: Ht 149.9 cm; Wt 58.1 kg
[~2019-08-14 11:38] MED LIST changes: +DOXY-96 PO; -DOXY100T9 PO; +ESTR-113 PO; -ESTR1TAB15 PO; +LIDO700A21 TP; -LIDO700A39 TP; +OLAN5TAB9 PO; +OMEP40CA45 PO; -OMEP40CA5 PO; -TIZA4TAB PO; +TIZA4TAB2 PO
[2019-08-14 11:45] VITALS: BP 177/88
[2019-08-14] MEDS ORDERED: METH4TAB2 PO (12:14)
[2019-08-14 12:15] LABS: BILIRUBIN,URINE NEGATIVE (NEG); CLARITY,URINE CLEAR; COLOR,URINE YELLOW; NITRITE,URINE NEGATIVE (NEG); PROTEIN,URINE NEGATIVE (NEG-TRACE)
--- NOTE | 2019-08-14 12:15 | PHYS DOC ---
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 This is exacerbating her chronic lower back pain. She states that she is gone to physical therapy for this. She has had back surgeries in the past. She states it hurts mostly on the right lower side and does radiate that is sharp and shooting. She has had this back pain in the past. She is on muscle relaxers at home. She states she is also been using a heating pad and pain patches for back pain. She did state that she did cocaine yesterday. Patient rating her back a 10 out of 10. Review of Systems: Review of Systems: Musculoskeletal: low back pain or denies joint pain. [] Heart Score: Risk Factors: Risk Factors: DM, Current or recent (<one month) smoker, HTN, HLP, family history of CAD, obesity. Risk Scores: Score 0 - 3: 2.5% MACE over next 6 weeks - Discharge Home Score 4 - 6: 20.3% MACE over next 6 weeks - Admit for Clinical Observation Score 7 - 10: 72.7% MACE over next 6 weeks - Early Invasive Strategies Allergies: Allergies: Allergies Coded Allergies Type Severity Reaction Last Updated Verified Penicillins Allergy Intermediate itching 10/27/13 Yes Physical Exam: PE: Constitutional: Well developed, well nourished, no acute distress, non-toxic appearance. [] HENT: Normocephalic, atraumatic, bilateral external ears normal, oropharynx moist, no oral exudates, nose normal. [] Eyes: PERRLA, EOMI, conjunctiva normal, no discharge. [] Neck: Normal range of motion, no tenderness, supple, no stridor. [] Cardiovascular:Heart rate regular rhythm, no murmur [] Lungs & Thorax: Bilateral breath sounds clear to auscultation [] Abdomen: Bowel sounds normal, soft, no tenderness, no masses, no pulsatile masses. [] Skin: Warm, dry, no erythema, no rash. [] Back: No tenderness, no CVA tenderness. [] Extremities: No tenderness, no cyanosis, no clubbing, ROM intact, no edema. [] Neurologic: Alert and oriented X 3, normal motor function, normal sensory function, no focal deficits noted. [] Psychologic: Affect normal, judgement normal, mood normal. [] Normal physical Exam Current Patient Data: Vital Signs: Vital Signs Date Time Temp Pulse Resp B/P (MAP) Pulse Ox O2 Delivery O2 Flow Rate FiO2 08/14/19 11:45 98.2 66 18 177/88 (117) 97 Room Air 98.2 EKG: EKG: [] Radiology/Procedures: Radiology/Procedures: [] Course & Med Decision Making: Course & Med Decision Making Pertinent Labs and Imaging studies reviewed. (See chart for details) Ambulatory with a steady gait. Denies numbness or tingling or saddle paresthesias. Denies incontinence. Urinating appropriately. Denies fever, nausea, vomiting, dysuria. Alert and oriented. Afebrile. No tenderness or spinal tenderness. Since patient is positive for cocaine abuse I will give her dexamethasone and she can continue taking her muscle relaxer at home. [] Dragon Disclaimer: Dragon Disclaimer: This electronic medical record was generated, in whole or in part, using a voice recognition dictation system. Departure Departure Impression: Primary Impression: Right sided sciatica Additional Impressions: Back pain Qualified Codes: M54.41 - Lumbago with sciatica, right side; G89.29 - Other chronic pain UTI (urinary tract infection) Qualified Codes: N39.0 - Urinary tract infection, site not specified; R31.9 - Hematuria, unspecified Disposition: 01 HOME, SELF-CARE Condition: STABLE Referrals: SONIA TILLEY MD (PCP) Patient Instructions: Chronic Back Pain, Sciatica with Rehab[facility] Additional Instructions: Follow up with primary care provider. Continue taking your medications at home. Drink plenty of fluids. Stop using drugs if possible. Scripts Nitrofurantoin Monohyd/M-Cryst (MACROBID 100 MG CAPSULE) 100 Mg Capsule 1 CAP PO BID for 7 Days, #14 CAP 0 Refills Prov: ARVIND JENSEN LABORATORY TECHNOLOGY TEACHER 08/14/19 Methylprednisolone (MEDROL) 4 Mg Tab.ds.pk 1 PKG PO UD, #1 PKG Prov: ARVIND JENSEN APRN 08/14/19 Justicifation of Admission Dx: Justifications for Admission: Justification of Admission Dx: N/A ARVIND JENSEN APRN Aug 14, 2019 12:14
[2019-08-14 12:19] LABS: BARBITURATES NEG (NEG); BENZODIAZEPINES NEG (NEG); CANNABINOIDS NEG (NEG); COCAINE POS (NEG); METHADONE NEG (NEG); OPIATES NEG (NEG); PHENCYCLIDINE NEG (NEG)
[2019-08-14 12:20] LABS: AMPHETAMINE/METHAMPHETAMINE NEG (NEG)
[2019-08-14 12:23] LABS: BACTERIA,URINE FEW /HPF (0-FEW); SQUAMOUS EPITHELIAL CELL,UR MOD /LPF
[2019-08-14] MEDS ORDERED: NITR100C62 PO (12:25)
== END 2019-08-14 12:33 | disposition home or self-care (01) ==
LOC: ER 11:38
DX: M54.41 Lumbago with sciatica, right side (principal); N39.0 Urinary tract infection, site not specified; G89.29 Other chronic pain; R31.9 Hematuria, unspecified; I10 Essential (primary) hypertension; F10.10 Alcohol abuse, uncomplicated; F14.90 Cocaine use, unspecified, uncomplicated; Z87.891 Personal history of nicotine dependence; Z90.710 Acquired absence of both cervix and uterus; Z98.890 Other specified postprocedural states; Z88.0 Allergy status to penicillin
CPT/HCPCS: 80307; 81001; 87086; 99283

== ENCOUNTER → 2021-05-30 | Outpatient (CLI) | payer MEDICARE, OTHER ==
[~2021-05-30] MED LIST changes: +AMLO-187 PO; +BUPROPION HCL PO; +CONTRAST GIVEN. MC PRN; +DIVA500T4 PO; +IOHEXOL 300 MG/ML 100ML VIAL. IV ONE; -LISI-334 PO; +LISI20TA18 PO; +METH4TAB2 PO; +NAPR-699 PO; -NAPR250T6 PO; +NITR100C62 PO; +OLAN5TAB67 PO; -OLAN5TAB9 PO; -OMEP40CA45 PO; +OMEP40CA7 PO; +TIZA-75 PO; -TIZA4TAB2 PO
--- NOTE | 2021-05-30 14:31 | RAD ---
EXAMINATION: CT pelvis with IV contrast. INDICATION:66 years, Female, pelvic mass. TECHNIQUE: Axial CT images of the pelvis was obtained. Coronal and sagittal reformatted performed. COMPARISON: None. Exposure: One or more of the following individualized dose reduction techniques were utilized for thi s examination: 1. Automated exposure control 2. Adjustment of the mA and/or kV according to patient size 3. Use of iterative reconstruction technique. FINDINGS: No suspicious pelvic masses. Underdistended urinary bladder which limits evaluation. Hysterectomy. No pelvic free fluid. No pelvic lymphadenopathy by size criteria. No bowel dilation. Few colonic divert iculosis without acute diverticulitis. Normal appendix. Patent iliac arteries. No suspicious osseous lesion. Severe degenerative changes at L5-S1. IMPRESSION: 1. No suspicious pelvic masses. 2. Other chronic/incidental findings, as described above. Electronically signed by: Loi Voss MD (05/30/2021 2:29 PM) [facility]
== END ==
LOC: CT 11:34
PROVIDERS: ATTEND Family Medicine
DX: K57.30 Diverticulosis of large intestine without perforation or abscess without bleeding (principal); M47.817 Spondylosis without myelopathy or radiculopathy, lumbosacral region; Z90.710 Acquired absence of both cervix and uterus
CPT/HCPCS: 72193; Q9967

== ENCOUNTER 2021-06-24 12:46 | Inpatient (IN) | payer MEDICARE, MEDICAID ==
[~2021-06-24] VITALS: Ht 149.9 cm; Wt 55.4 kg
[~2021-06-24 12:46] MED LIST changes: -CONTRAST GIVEN. MC PRN; -IOHEXOL 300 MG/ML 100ML VIAL. IV ONE
[2021-06-24] MEDS ORDERED: IV NORMAL SALINE 1000ML BAG 1,000 ML IV ONE (13:15)
[2021-06-24 13:21] LABS: BASO % 1 % (0-3); EOS # 0.2 x10^3/uL (0.0-0.7); EOS % 4 % (0-3); HEMATOCRIT 37.2 % (36.0-47.0); HEMOGLOBIN 12.2 g/dL (12.0-15.5); LYMPH # 2.9 x10^3/uL (1.0-4.8); LYMPH % 60 % (24-48); MEAN CORPUSCULAR HEMOGLOBIN 28 pg (25-35); MEAN CORPUSCULAR HGB CONC 33 g/dL (31-37); MEAN CORPUSCULAR VOLUME 84 fL (79-100); MONO # 0.3 x10^3/uL (0.0-1.1); MONO % 6 % (0-9); NEUT # 1.4 x10^3/uL (1.8-7.7); NEUT % 29 % (31-73); PLATELET COUNT 164 x10^3/uL (140-400); RED BLOOD COUNT 4.42 x10^6/uL (3.50-5.40); WHITE BLOOD COUNT 4.7 x10^3/uL (4.0-11.0)
[2021-06-24 13:35] LABS: PROTHROMBIN TIME PATIENT 13.8 SEC (11.7-14.0)
[2021-06-24 13:39] LABS: CALCIUM 8.6 mg/dL (8.5-10.1); CREATININE 2.3 mg/dL (0.6-1.0); GFR 25.8; POTASSIUM 3.6 mmol/L (3.5-5.1)
[2021-06-24 13:45] LABS: ALBUMIN 3.3 g/dL (3.4-5.0); TOTAL BILIRUBIN 0.3 mg/dL (0.2-1.0); TOTAL PROTEIN 6.7 g/dL (6.4-8.2)
[2021-06-24] MEDS ORDERED: ATROPINE 0.5 MG/5 ML DISP.SYRINGE. IV ONE (13:45)
[2021-06-24 14:09] LABS: % EOS 3 % (0-5); % LYMPHS 66 % (24-48); % MONOS 5 % (0-10); % SEGS 26 % (35-66)
--- NOTE | 2021-06-24 14:09 | RAD ---
EXAMINATION: Chest radiograph. VIEWS: Single AP view of chest COMPARISON: 06/06/2018 INDICATION:66 years, Female, syncope. FINDINGS: Normal cardiomediastinal silhouette. Patchy linear bibasilar opacities. No focal consolidation. No pl eural effusion or pneumothorax. No acute osseous process. IMPRESSION: Patchy linear bibasilar opacities favoring subsegmental atelectasis, developing infiltrates is felt t o be less likely. Electronically signed by: Trey Patricio DO (06/24/2021 2:06 PM) [facility]
[2021-06-24 14:10] LABS: PLT ESTIMATE ADEQUATE (ADEQUATE)
--- NOTE | 2021-06-24 14:13 | RAD ---
Exam Date: 06/24/2021 2:[address] HEAD/BRAIN WO Indication: Reason: syncope / Spl. Instructions: / History: . TECHNIQUE: Head CT was performed without intravenous contrast. One or more of the following dose re duction techniques were utilized: *Automated exposure control (AEC) *Adjustment of mA and/or kV according to patient size *Use of iterative reconstruction technique *CT scan done according to ALARA, or ALARA/IMAGE GENTLY FINDINGS: The ventricles and sulci are prominent consistent with cerebral volume loss. Patchy ill-defined low attenuation areas in the subcortical and periventricular white matter bilaterally are consistent with microvascular disease. There is no evidence of acute intracranial hemorrhage, extra-axial collecti on, mass effect, midline shift, or acute territorial infarct. No lesion of the skull base or the calv arium is seen. The visualized paranasal sinuses, mastoid air cells and orbits are normal in appearanc e. IMPRESSION: No evidence for acute intracranial abnormality. Volume loss and microvascular disease. Electronically signed by: Channing Lakhani MD (06/24/2021 2:10 PM) [id number]
--- NOTE | 2021-06-24 16:47 | PHYS DOC ---
Past Medical History Past Medical History: Bronchitis, Hypertension, Seizure Additional Past Medical Histor: seizures; cocaine use Past Surgical History: No Surgical History Additional Past Surgical Histo: back sx, hernia, bilat rotator cuff Smoking Status: Heavy Tobacco Smoker Alcohol Use: Heavy Drug Use: Cocaine General Adult EDM: Chief Complaint: HYPOTENSION HPI: HPI: Patient is a 66 year old [f__sex] who presents with [] Review of Systems: Review of Systems: Constitutional: Denies fever or chills Eyes: Denies redness or eye pain HENT: Denies nasal congestion or sore throat Respiratory: Denies cough or shortness of breath Cardiovascular: Denies chest pain or palpitations GI: Denies abdominal pain, nausea, or vomiting : Denies dysuria or hematuria Musculoskeletal: Denies back pain or joint pain Integument: Denies rash or skin lesions Neurologic: Denies headache, focal weakness or sensory changes Complete systems were reviewed and found to be within normal limits, except as documented in this note. Heart Score: C/O Chest Pain: N/A Current Medications: Current Medications Medications (Trade) Dose Ordered Sig/Madisyn Start Time Stop Time Status Last Admin Dose Admin Atropine Sulfate (ATROPINE 0.5mg SYRINGE) 0.5 mg 1X ONCE 06/24/21 13:45 06/24/21 13:46 DC 06/24/21 13:47 0.5 MG Sodium Chloride 1,000 ml @ 1,000 mls/hr 1X ONCE 06/24/21 13:15 06/24/21 14:14 DC 06/24/21 13:15 1,000 MLS/HR Allergies: Allergies: Allergies Coded Allergies Type Severity Reaction Last Updated Verified Penicillins Allergy Intermediate itching 10/27/13 Yes Physical Exam: PE: Constitutional: Well developed, well nourished, no acute distress, non-toxic appearance HENT: Normocephalic, atraumatic Eyes: PERRL, EOMI, conjunctiva normal, no discharge Neck: Normal range of motion, no tenderness, supple Lungs & Thorax: No respiratory distress, equal chest rise and fall Abdomen: Soft, no tenderness Skin: Warm, dry, no erythema, no rash Back: No tenderness, no CVA tenderness Extremities: No tenderness, ROM intact, no edema Neurologic: Alert and oriented X 3, normal motor function, normal sensory function, no focal deficits noted Psychologic: Affect normal, judgment normal Current Patient Data: Labs: Laboratory Tests Test 06/24/21 12:57 White Blood Count 4.7 x10^3/uL (4.0-11.0) Red Blood Count 4.42 x10^6/uL (3.50-5.40) Hemoglobin 12.2 g/dL (12.0-15.5) Hematocrit 37.2 % (36.0-47.0) Mean Corpuscular Volume 84 fL (79-100) Mean Corpuscular Hemoglobin 28 pg (25-35) Mean Corpuscular Hemoglobin Concent 33 g/dL (31-37) Red Cell Distribution Width 15.0 % (11.5-14.5) H Platelet Count 164 x10^3/uL (140-400) Neutrophils (%) (Auto) 29 % (31-73) L Lymphocytes (%) (Auto) 60 % (24-48) H Monocytes (%) (Auto) 6 % (0-9) Eosinophils (%) (Auto) 4 % (0-3) H Basophils (%) (Auto) 1 % (0-3) Neutrophils # (Auto) 1.4 x10^3/uL (1.8-7.7) L Lymphocytes # (Auto) 2.9 x10^3/uL (1.0-4.8) Monocytes # (Auto) 0.3 x10^3/uL (0.0-1.1) Eosinophils # (Auto) 0.2 x10^3/uL (0.0-0.7) Basophils # (Auto) 0.0 x10^3/uL (0.0-0.2) Segmented Neutrophils % 26 % (35-66) L Lymphocytes % 66 % (24-48) H Monocytes % 5 % (0-10) Eosinophils % 3 % (0-5) Platelet Estimate Adequate (ADEQUATE) Prothrombin Time 13.8 SEC (11.7-14.0) Prothrombin Time INR 1.1 (0.8-1.1) Activated Partial Thromboplast Time 30 SEC (24-38) Sodium Level 140 mmol/L (136-145) Potassium Level 3.6 mmol/L (3.5-5.1) Chloride Level 102 mmol/L (98-107) Carbon Dioxide Level 30 mmol/L (21-32) Anion Gap 8 (6-14) Blood Urea Nitrogen 22 mg/dL (7-20) H Creatinine 2.3 mg/dL (0.6-1.0) H Estimated GFR (Cockcroft-Gault) 25.8 BUN/Creatinine Ratio 10 (6-20) Glucose Level 96 mg/dL (70-99) Lactic Acid Level 1.3 mmol/L (0.4-2.0) Calcium Level 8.6 mg/dL (8.5-10.1) Magnesium Level 2.0 mg/dL (1.8-2.4) Total Bilirubin 0.3 mg/dL (0.2-1.0) Aspartate Amino Transferase (AST) 14 U/L (15-37) L Alanine Aminotransferase (ALT) 13 U/L (14-59) L Alkaline Phosphatase 85 U/L (46-116) Creatine Kinase 61 U/L (26-192) Creatine Kinase MB (Mass) 0.7 ng/mL (0.0-3.6) Creatine Kinase MB Relative Index 1.1 % (0-4) Troponin I High Sensitivity 9 ng/L (4-50) Total Protein 6.7 g/dL (6.4-8.2) Albumin 3.3 g/dL (3.4-5.0) L Albumin/Globulin Ratio 1.0 (1.0-1.7) Laboratory Tests 06/24/21 12:57 Laboratory Tests 06/24/21 12:57 Vital Signs: Vital Signs Date Time Temp Pulse Resp B/P (MAP) Pulse Ox O2 Delivery O2 Flow Rate FiO2 06/24/21 12:47 97.7 48 16 74/47 (56) 96 97.7 EKG: EKG: @1250 sinus bradycardia rate [address] elevation QRS 80ms t wave inversion I-III, aVF, and V3-V46 Qt 526 QTc 465 Radiology/Procedures: Radiology/Procedures: PROCEDURE: CT HEAD WO CONTRAST Exam Date: 06/24/2021 2:[address] HEAD/BRAIN WO Indication: Reason: syncope / Spl. Instructions: / History: . TECHNIQUE: Head CT was performed without intravenous contrast. One or more of the following dose reduction techniques were utilized: *Automated exposure control (AEC) *Adjustment of mA and/or kV according to patient size *Use of iterative reconstruction technique *CT scan done according to ALARA, or ALARA/IMAGE GENTLY FINDINGS: The ventricles and sulci are prominent consistent with cerebral volume loss. Patchy ill-defined low attenuation areas in the subcortical and periventricular white matter bilaterally are consistent with microvascular disease. There is no evidence of acute intracranial hemorrhage, extra-axial collection, mass effect, midline shift, or acute territorial infarct. No lesion of the skull base or the calvarium is seen. The visualized paranasal sinuses, mastoid air cells and orbits are normal in appearance. IMPRESSION: No evidence for acute intracranial abnormality. Volume loss and microvascular disease. Electronically signed by: Channing Lakhani MD (06/24/2021 2:10 PM) [id number] PROCEDURE: PORTABLE CHEST 1V EXAMINATION: Chest radiograph. VIEWS: Single AP view of chest COMPARISON: 06/06/2018 INDICATION:66 years, Female, syncope. FINDINGS: Normal cardiomediastinal silhouette. Patchy linear bibasilar opacities. No focal consolidation. No pleural effusion or pneumothorax. No acute osseous process. IMPRESSION: Patchy linear bibasilar opacities favoring subsegmental atelectasis, developing infiltrates is felt to be less likely. Electronically signed by: Trey Patricio DO (06/24/2021 2:06 PM) [facility] Course & Med Decision Making: Course & Med Decision Making Pertinent Labs and Imaging studies reviewed. (See chart for details) Patient requiring admission for further evaluation and treatment. Discussed with Dr. Almaguer (hospitalist) who is in agreement with admission. Discussed findings and plan with patient, who acknowledges understanding and agreement. Oli Disclaimer: Oli Disclaimer: This electronic medical record was generated, in whole or in part, using a voice recognition dictation system. Departure Departure Impression: Primary Impression: Syncope Qualified Codes: R55 - Syncope and collapse Additional Impressions: Hypotension Qualified Codes: I95.9 - Hypotension, unspecified Bradycardia UTI (urinary tract infection) Qualified Codes: N30.00 - Acute cystitis without hematuria Trichomoniasis of bladder Disposition: ADMITTED INPATIENT Admitting Physician: GER Tracy) Condition: STABLE Referrals: NO PCP (PCP) Critical Care Time Critical care time was 30 minutes which includes time at bedside, spent in discussion of patient's care with specialists and/or family members, with interpretation of laboratory and/or radiological studies and is exclusive of procedures. SONIA GARDINER DO Jun 24, 2021 16:47
[2021-06-24] MEDS ORDERED: metroNIDAZOLE 500 MG TABLET PO ONE (17:00)
[2021-06-24] MEDS ORDERED: cefTRIAXone IV Push 1 GM VIAL. IVP ONE ×2 (17:00→17:56)
[2021-06-24] MEDS ORDERED: metroNIDAZOLE 500 MG TABLET ONE (17:56)
[2021-06-24] MEDS ORDERED: ONDANSETRON PF 4 MG/2 ML VIAL. IVP PRN (18:15)
[2021-06-24 19:00] VITALS: BP 165/61
[2021-06-24 23:00] VITALS: BP 136/56
[2021-06-25 03:00] VITALS: BP 111/48
[2021-06-25 07:00] VITALS: BP 147/68
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
[2021-06-25] MEDS ORDERED: CALCIUM CARBONATE 500 MG TAB.CHEW PO PRN (09:30)
[2021-06-25] MEDS ORDERED: MAG HYDROX/ALUMINUM HYD/SIMETH 30 ML ORAL.SUSP PO PRN (09:30)
[2021-06-25] MEDS ORDERED: ONDANSETRON PF 4 MG/2 ML VIAL. IVP PRN (09:30)
[2021-06-25] MEDS ORDERED: HYDROcodone/APAP 5/325MG 1 TAB TABLET PO PRN (09:30)
[2021-06-25] MEDS ORDERED: ACETAMINOPHEN 325 MG TABLET. PO PRN (09:30)
[2021-06-25] MEDS ORDERED: MAGNESIUM HYDROXIDE 2,400 MG/30 ML ORAL.SUSP. PO PRN (09:30)
[2021-06-25] MEDS ORDERED: DIVALPROEX DELAYED RELEASE 500 MG TABLET.DR. PO SCH ×2 (10:00→21:00)
[2021-06-25] MEDS ORDERED: DIVA500T2 PO (10:29)
[2021-06-25] MEDS ORDERED: TRAZ-118 PO (10:29)
[2021-06-25] MEDS ORDERED: CLON0.2T PO (10:29)
[2021-06-25] MEDS ORDERED: ESTR2TAB4 PO (10:29)
[2021-06-25] MEDS: PANTOPRAZOLE 40 MG TABLET.DR. PO SCH (10:33)
[2021-06-25 11:00] VITALS: BP 134/61
[2021-06-25 11:26] LABS: BACTERIA,URINE MANY /HPF (0-FEW); WBC,URINE 20-40 /HPF (0-4)
[2021-06-25 11:27] LABS: TRICHOMONAS,URINE PRESENT
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
[2021-06-25] MEDS ORDERED: IV NORMAL SALINE 500ML BAG 500 ML IV ONE (13:15)
[2021-06-25] MEDS: HEPARIN for SUB-Q USE 5,000 UNIT/ML VIAL. SQ SCH ×2 (14:00→22:00)
[2021-06-25 15:00] VITALS: BP 138/70
[2021-06-25] MEDS: DIVALPROEX DELAYED RELEASE 500 MG TABLET.DR. PO SCH ×2 (15:59→20:18)
[2021-06-25 17:19] LABS: BARBITURATES NEG (NEG); BENZODIAZEPINES NEG (NEG); CANNABINOIDS NEG (NEG); COCAINE POS (NEG); METHADONE NEG (NEG); OPIATES NEG (NEG); PHENCYCLIDINE NEG (NEG)
[2021-06-25 17:21] LABS: AMPHETAMINE/METHAMPHETAMINE NEG (NEG)
[2021-06-25] MEDS ORDERED: hydrALAZINE 20 MG/ML VIAL. IVP PRN (19:30)
[2021-06-25] MEDS: traZODone 50 MG TABLET. PO SCH (20:17)
[2021-06-25 23:22] VITALS: BP 163/73
[2021-06-26 03:42] VITALS: BP 149/83
[2021-06-26 05:11] LABS: CALCIUM 8.2 mg/dL (8.5-10.1); CREATININE 1.6 mg/dL (0.6-1.0); GFR 39.3; POTASSIUM 3.7 mmol/L (3.5-5.1)
[2021-06-26] MEDS: HEPARIN for SUB-Q USE 5,000 UNIT/ML VIAL. SQ SCH ×3 (06:00→20:19)
[2021-06-26 07:00] VITALS: BP 199/84
[2021-06-26] MEDS: OLANZapine 5 MG TABLET PO SCH (08:39)
[2021-06-26] MEDS: PANTOPRAZOLE 40 MG TABLET.DR. PO SCH (08:39)
[2021-06-26] MEDS: DIVALPROEX DELAYED RELEASE 500 MG TABLET.DR. PO SCH ×3 (08:40→20:19)
[2021-06-26] MEDS: ESTRADIOL 1 MG TABLET. PO SCH (08:41)
--- NOTE | 2021-06-26 09:00 | NUR ---
Pt still refusing to be tested for covid via swab at this time.
--- NOTE | 2021-06-26 10:24 | PDOC ---
[employer] PROGRESS NOTE Date of Service DOS: DATE: 06/26/21 TIME: 10:17 Chief Complaint Chief Complaint Vasovagal syncope Hypotension Bradycardia BRIGIDO due to vasomotor nephropathy Schizoaffective disorder/schizophrenia Seizure disorder Intentional OD History of Present Illness History of Present Illness 06/26: Blood pressure still significantly elevated, 199/84 mmHg. We will add HCTZ 25 mg to amlodipine. UA showing large LE, many bacteria, and trichomonas. Prescribe metronidazole 500 mg twice daily for 7 days. Patient informed not to drink while on this medication. PAT team is being consulted yesterday as patient stated she did intentionally overdose on her medications after an argument with her daughter. She was recommended to follow-up with [facility]. Denies suicidal ideation at this time. Suspect vasovagal syncope after this argument in conjunction with clonidine use. Vitals/I&O Vitals/I&O: Vital Signs Date Time Temp Pulse Resp B/P (MAP) Pulse Ox O2 Delivery O2 Flow Rate FiO2 06/26/21 08:40 64 199/84 06/26/21 03:42 97.7 20 98 Nasal Cannula 3.0 97.7 I & O 06/25/21 06/25/21 06/26/21 15:00 23:00 07:00 Intake Total 500 ml 200 ml 240 ml Output Total 450 ml 1400 ml Balance 50 ml 200 ml -1160 ml Physical Exam General: Alert, Cooperative Heart: Regular rate Lungs: Clear Abdomen: Soft, No tenderness Extremities: No cyanosis Skin: No rashes Labs Labs: Laboratory Tests Test 06/25/21 16:20 06/26/21 04:00 Urine Opiates Screen Neg (NEG) Urine Methadone Screen Neg (NEG) Urine Barbiturates Neg (NEG) Urine Phencyclidine Screen Neg (NEG) Urine Amphetamine/Methamphetamine Neg (NEG) Urine Benzodiazepines Screen Neg (NEG) Urine Cocaine Screen Pos (NEG) Urine Cannabinoids Screen Neg (NEG) Urine Ethyl Alcohol Neg (NEG) Sodium Level 141 mmol/L (136-145) Potassium Level 3.7 mmol/L (3.5-5.1) Chloride Level 104 mmol/L (98-107) Carbon Dioxide Level 31 mmol/L (21-32) Anion Gap 6 (6-14) Blood Urea Nitrogen 15 mg/dL (7-20) Creatinine 1.6 mg/dL (0.6-1.0) Estimated GFR (Cockcroft-Gault) 39.3 Glucose Level 81 mg/dL (70-99) Calcium Level 8.2 mg/dL (8.5-10.1) Assessment and Plan Assessmemt and Plan Problems Medical Problems: (1) Bradycardia Status: Acute (2) Hypotension Status: Acute (3) Syncope Status: Acute (4) Trichomoniasis of bladder Status: Acute (5) UTI (urinary tract infection) Status: Acute Comment Review of Relevant I have reviewed the following items dutch (where applicable) has been applied. Medications: Current Medications Medications (Trade) Dose Ordered Sig/Madisyn Route PRN Reason Start Time Stop Time Status Last Admin Dose Admin Olanzapine (ZyPREXA) 20 mg DAILY PO 06/26/21 09:00 06/26/21 08:39 Amlodipine Besylate (Norvasc) 10 mg DAILY PO 06/26/21 09:00 06/26/21 08:40 Divalproex Sodium (Depakote) 500 mg TID PO 06/25/21 14:00 06/26/21 08:40 Trazodone HCl (Desyrel) 50 mg HS PO 06/25/21 21:00 06/25/21 20:17 Sodium Chloride 500 ml @ 125 mls/hr 1X ONCE IV 06/25/21 13:15 06/25/21 17:14 DC 06/25/21 16:00 Justifications for Admission Other Justification IVANNA FRIEDMAN MD June 26, 2021 10:24
[2021-06-26 11:00] VITALS: BP 122/69
[2021-06-26] MEDS: hydroCHLOROthiazide 25 MG TABLET PO SCH (13:15)
[2021-06-26 15:00] VITALS: BP 138/78
[2021-06-26 19:12] VITALS: BP 142/72
[2021-06-26] MEDS: traZODone 50 MG TABLET. PO SCH (20:18)
--- NOTE | 2021-06-26 21:47 | PDOC ---
CARDIOLOGY PROGRESS NOTE SUBJECTIVE: No new issues. OBJECTIVE: Vital Signs/I&O: Vital Signs Date Time Temp Pulse Resp B/P (MAP) Pulse Ox O2 Delivery O2 Flow Rate FiO2 06/26/21 19:22 Room Air 06/26/21 19:12 98.2 61 14 142/72 (95) 96 98.2 06/26/21 08:00 3.0 I & O 06/25/21 06/25/21 06/26/21 15:00 23:00 07:00 Intake Total 500 ml 200 ml 240 ml Output Total 450 ml 1400 ml Balance 50 ml 200 ml -1160 ml Objective: GEN.: No apparent distress. Alert and oriented. HEENT: Head is normocephalic, atraumatic NECK: Supple. LUNGS: Clear to auscultation. HEART: RRR, S1, S2 present. Peripheral pulses intact ABDOMEN: Soft, nontender. Positive bowel sounds. EXTREMITIES: Without any cyanosis. NEUROLOGIC: Normal speech, normal tone PSYCHIATRIC: Normal affect, normal mood. SKIN: No ulcerations CURRENT MEDICATIONS: Current Medications Medications (Trade) Dose Ordered Sig/Madisyn Route PRN Reason Start Time Stop Time Status Last Admin Dose Admin Olanzapine (ZyPREXA) 20 mg DAILY PO 06/26/21 09:00 06/26/21 08:39 Amlodipine Besylate (Norvasc) 10 mg DAILY PO 06/26/21 09:00 06/26/21 08:40 Hydrochlorothiazide (Hydrodiuril) 25 mg DAILY PO 06/26/21 11:00 06/26/21 13:15 DIAGNOSTIC TESTING: labs reviewed Labs: Laboratory Tests 06/26/21 04:00 Laboratory Tests Test 06/26/21 04:00 Sodium Level 141 mmol/L (136-145) Potassium Level 3.7 mmol/L (3.5-5.1) Chloride Level 104 mmol/L (98-107) Carbon Dioxide Level 31 mmol/L (21-32) Anion Gap 6 (6-14) Blood Urea Nitrogen 15 mg/dL (7-20) Creatinine 1.6 mg/dL (0.6-1.0) H Estimated GFR (Cockcroft-Gault) 39.3 Glucose Level 81 mg/dL (70-99) Calcium Level 8.2 mg/dL (8.5-10.1) L ASSESSMENT: ASSESSMENT: 1. Syncope: suspect seizure in etiology. per PCP 2. Hypotension 3. suspect CKD3 4. Cocaine abuse 5. Hx of paranoid schizophrenia 6. Asymptomatic Sinus Bradycardia: lowest mid40s no pauses 7. Treatment noncompliance 8. Hx of seizures 9. Binge alcoholism and tobaccoism PLAN: 1. Patient's telemetry, cardiac enzymes are unremarkable. Previous echocardio gram is also unremarkable. I have a low suspicion for primary cardiac process as the etiology of her syncope. This is likely related to either alcohol or drug abuse and or seizure disorder. Supportive care for now. 2. We will plan for outpatient loop recorder implantation to completely rule out any cardiac arrhythmias. Justicifation of Admission Dx: Justifications for Admission: Justification of Admission Dx: N/A JOSE DAVID WYMAN MD June 26, 2021 21:47
[2021-06-26 22:29] VITALS: BP 138/77
[2021-06-27 03:02] VITALS: BP 133/70
--- NOTE | 2021-06-27 05:57 | EKG ---
[facility] [address] [place] [address] Test Date: 2021-06-24 Test Time: 12:50:53 Pat Name: YULY SUAZO Department: Room: Gender: F Entry Examiner: : 1955 Requested By: SONIA GARDINER Order Number: [id number] Reading MD: Measurements Intervals [place] Rate: 47 P: 68 ME: 174 QRS: 52 QRSD: 80 T: 193 QT: 526 QTc: 465 Interpretive Statements SINUS BRADYCARDIA T ABNORMALITY IN ANTERIOR LEADS LATERAL LEADS INFEROLATERAL LEADS ABNORMAL ECG RI6.02 No previous ECG available for comparison
[2021-06-27] MEDS: HEPARIN for SUB-Q USE 5,000 UNIT/ML VIAL. SQ SCH (06:00)
[2021-06-27 07:00] VITALS: BP 146/72
--- NOTE | 2021-06-27 08:36 | PDOC ---
[employer] PROGRESS NOTE Date of Service DOS: DATE: 06/27/21 TIME: 08:35 Chief Complaint Chief Complaint Vasovagal syncope Hypotension Bradycardia BRIGIDO due to vasomotor nephropathy Schizoaffective disorder/schizophrenia Seizure disorder Intentional OD History of Present Illness History of Present Illness 06/27: Patient seen and evaluated. Blood pressure much better controlled today. She has no complaints, denies headache or chest pain. Will discharge on oral metronidazole for 7 days and follow-up with a PCP within 1 week. Patient instructed not to drink on this medication. She believes her presenting symptoms were secondary to her seizure disorders, as this is been a recurrent theme throughout her life. Greater than 30 minutes was spent managing the discharge this patient. 06/26: Blood pressure still significantly elevated, 199/84 mmHg. We will add HCTZ 25 mg to amlodipine. UA showing large LE, many bacteria, and trichomonas. Prescribe metronidazole 500 mg twice daily for 7 days. Patient informed not to drink while on this medication. PAT team is being consulted yesterday as patient stated she did intentionally overdose on her medications after an argument with her daughter. She was recommended to follow-up with [facility]. Denies suicidal ideation at this time. Suspect vasovagal syncope after this argument in conjunction with clonidine use. Vitals/I&O Vitals/I&O: Vital Signs Date Time Temp Pulse Resp B/P (MAP) Pulse Ox O2 Delivery O2 Flow Rate FiO2 06/27/21 03:02 97.9 58 18 133/70 (91) 96 Room Air 97.9 06/26/21 08:00 3.0 I & O 06/26/21 06/26/21 06/27/21 15:00 23:00 07:00 Intake Total 1000 ml Output Total 1200 ml 2100 ml 950 ml Balance -1200 ml -2100 ml 50 ml Physical Exam General: Alert, Cooperative Heart: Regular rate Lungs: Clear Abdomen: Soft, No tenderness Extremities: No cyanosis Skin: No rashes Assessment and Plan Assessmemt and Plan Problems Medical Problems: (1) Bradycardia Status: Acute (2) Hypotension Status: Acute (3) Syncope Status: Acute (4) Trichomoniasis of bladder Status: Acute (5) UTI (urinary tract infection) Status: Acute Comment Review of Relevant I have reviewed the following items dutch (where applicable) has been applied. Medications: Current Medications Medications (Trade) Dose Ordered Sig/Madisyn Route PRN Reason Start Time Stop Time Status Last Admin Dose Admin Olanzapine (ZyPREXA) 20 mg DAILY PO 06/26/21 09:00 06/26/21 08:39 Amlodipine Besylate (Norvasc) 10 mg DAILY PO 06/26/21 09:00 06/26/21 08:40 Hydrochlorothiazide (Hydrodiuril) 25 mg DAILY PO 06/26/21 11:00 06/26/21 13:15 Justifications for Admission Other Justification IVANNA FRIEDMAN MD June 27, 2021 08:36
--- NOTE | 2021-06-27 08:42 | PDOC3 ---
Discharge Summary Visit Information Date of Admission: Jun 25, 2021 Date of Discharge: June 27, 2021 Final Diagnosis Problems Medical Problems: (1) Bradycardia Status: Acute (2) Hypotension Status: Acute (3) Syncope Status: Acute (4) Trichomoniasis of bladder Status: Acute (5) UTI (urinary tract infection) Status: Acute Brief Hospital Course Allergies Allergies Coded Allergies Type Severity Reaction Last Updated Verified Penicillins Allergy Intermediate itching 10/27/13 Yes Vital Signs Vital Signs Date Time Temp Pulse Resp B/P (MAP) Pulse Ox O2 Delivery O2 Flow Rate FiO2 06/27/21 03:02 97.9 58 18 133/70 (91) 96 Room Air 97.9 06/26/21 08:00 3.0 Lab Results Laboratory Tests Test 06/25/21 16:20 06/26/21 04:00 Urine Opiates Screen Neg (NEG) Urine Methadone Screen Neg (NEG) Urine Barbiturates Neg (NEG) Urine Phencyclidine Screen Neg (NEG) Urine Amphetamine/Methamphetamine Neg (NEG) Urine Benzodiazepines Screen Neg (NEG) Urine Cocaine Screen Pos (NEG) Urine Cannabinoids Screen Neg (NEG) Urine Ethyl Alcohol Neg (NEG) Sodium Level 141 mmol/L (136-145) Potassium Level 3.7 mmol/L (3.5-5.1) Chloride Level 104 mmol/L (98-107) Carbon Dioxide Level 31 mmol/L (21-32) Anion Gap 6 (6-14) Blood Urea Nitrogen 15 mg/dL (7-20) Creatinine 1.6 mg/dL (0.6-1.0) Estimated GFR (Cockcroft-Gault) 39.3 Glucose Level 81 mg/dL (70-99) Calcium Level 8.2 mg/dL (8.5-10.1) Brief Hospital Course Ms. Ragsdale is a 66 old female who presented with hypotension, bradycardia, BRIGIDO, vasovagal syncope/seizure disorder. Consultations placed to cardiology. Patient was instructed to discontinue home clonidine. She was initiated on amlodipine and HCTZ for blood pressure control. Patient notes inconsistent use of her Depakote, as well as marijuana and cocaine use. She was instructed that recreational drug use may lower her seizure threshold. States that all of her life she has had syncopal episodes that she chalks up to her history of seizure disorder. She denies any tongue biting or loss of bladder/bowel function. When her blood pressure was better controlled, she was stable to discharge home with close PCP follow-up. Urine culture did show trichomonas. She was discharged on metronidazole for 7 days. Instructed not to drink alcohol on this medication. Discharge Information Condition at Discharge: Improved Disposition/Orders: D/C to Home Scheduled Amlodipine Besylate (Amlodipine Besylate) 10 Mg Tablet, 10 MG PO DAILY for HTN for 30 Days, #30 Ref 11 Prescribed by: BARBY ARITA MD on 10/12/20 1539 Last Action: Continued on 06/25/211307 by IVANNA FRIEDMAN MD Clonidine Hcl (Clonidine Hcl) 0.2 Mg Tablet, 0.2 MG PO BID for HTN, (Reported) Entered as Reported by: BESS FRANCO on 06/25/211028 Last Taken: Unknown Dose on Unknown Date & Time Last Action: HELD on 06/25/211307 by IVANNA FRIEDMAN MD Divalproex Sodium (Depakote) 500 Mg Tablet.dr, 500 MG PO TID for seizures, (Reported) Entered as Reported by: BESS FRANCO on 06/25/211028 Last Taken: Unknown Dose on Unknown Date & Time Last Action: Continued on 06/25/211307 by IVANNA FRIEDMAN MD Estradiol (Estrace) 2 Mg Tablet, 1 TAB PO DAILY for Hormone replacement, (Report ed) Entered as Reported by: BESS FRANCO on 06/25/211028 Last Taken: Unknown Dose on Unknown Date & Time Last Action: Converted on 06/25/211307 by IVANNA FRIEDMAN MD Omeprazole (Omeprazole) 40 Mg Capsule.dr, 40 MG PO DAILY, (Reported) Entered as Reported by: MANOJ MARCIAL on 05/03/16 1117 Last Action: Reviewed on 06/25/211028 by BESS FRANCO Trazodone Hcl (Trazodone Hcl) 50 Mg Tablet, 1 TAB PO HS for insomnia, (Reported) Entered as Reported by: BESS FRANCO on 06/25/211028 Last Taken: Unknown Dose on Unknown Date & Time Last Action: Continued on 06/25/211307 by IVANNA FRIEDMAN MD Discontinued Medications Estradiol (Estradiol) 1 Mg Tablet, 1 TAB PO DAILY, #30 Ref 11 (Reported) Entered as Reported by: MANOJ MARCIAL on 05/03/16 1118 Last Action: Discontinued on 06/25/21 1029 by BESS FRANCO Justicifation of Admission Dx: Justifications for Admission: Justification of Admission Dx: N/A IVANNA FRIEDMAN MD June 27, 2021 08:42
[2021-06-27] MEDS ORDERED: METR-34 PO (08:44)
[2021-06-27] MEDS ORDERED: HYDR-2145 PO (08:44)
[2021-06-27] MEDS: hydroCHLOROthiazide 25 MG TABLET PO SCH (08:54)
[2021-06-27 08:55] VITALS: BP 146/72
[2021-06-27] MEDS: PANTOPRAZOLE 40 MG TABLET.DR. PO SCH (08:55)
[2021-06-27] MEDS: DIVALPROEX DELAYED RELEASE 500 MG TABLET.DR. PO SCH (08:56)
[2021-06-27] MEDS: OLANZapine 5 MG TABLET PO SCH (08:56)
[2021-06-27] MEDS: ESTRADIOL 1 MG TABLET. PO SCH (08:56)
[2021-06-27] MEDS ORDERED: metroNIDAZOLE 500 MG TABLET PO SCH (09:00)
--- NOTE | 2021-06-27 10:05 | PDOC ---
LELIA BIRMINGHAM APRN 06/27/21 1005: CARDIO Progress Notes Date and Time Date of Service 06/27/21 Time of Evaluation 1000 Subjective Subjective: No Chest Pain, No shortness of breath, No Palpitations, No Dizziness Vitals Vitals Vital Signs Date Time Temp Pulse Resp B/P (MAP) Pulse Ox O2 Delivery O2 Flow Rate FiO2 06/27/21 08:55 74 146/72 06/27/21 08:00 Room Air 06/27/21 07:00 98.1 18 97 98.1 06/26/21 08:00 3.0 Weight Weight [ ] Input and Output Intake and Output Intake and Output 06/27/21 06:59 Intake Total 1000 ml Output Total 4250 ml Balance -3250 ml Intake Oral 1000 ml Output Urine Total 4250 ml Microbiology Micro Microbiology 06/25/21 Urine Culture - Final, Complete 06/24/21 Blood Culture - Preliminary, Resulted NO GROWTH AFTER 2 DAYS Physical Exam HEENT: Neck Supple W Full Motion Chest: Symmetric LUNGS: Clear to Auscultation Heart: RRR Abdomen: Soft N/T Extremities: No Edema Neurology: alert, follow commands Assessment Assessment 1. Syncope: vasovagal vs seizure etiology. Telemetry, cardiac enzymes unremarkable. doubt cardiac etiology 2. Hypotension; now adequate 3. BRIGIDO on CKD; improved 4. Cocaine abuse 5. Hx of paranoid schizophrenia 6. Asymptomatic Sinus Bradycardia: lowest mid40s no pauses 7. Treatment noncompliance 8. Hx of seizures 9. Binge alcoholism and tobaccoism Recommendations Will plan outpatient event monitor and followup in our office as scheduled Justicifation of Admission Dx: Justifications for Admission: Justification of Admission Dx: N/A JOSE DAVID WYMAN MD 06/28/21 0909: LELIA BIRMINGHAM APRN June 27, 2021 10:05 JOSE DAVID WYMAN MD June 28, 2021 09:09
--- NOTE | 2021-06-27 10:20 | NUR ---
Discharge Note: YULY SUAZO Discharge instructions and discharge home medications reviewed with Patient and a copy given. All questions have been answered and understanding verbalized. The following instructions and handouts were given: hydrochlorothiazide, Flagyl Patient discharged to home with transport via wheelchair.
== END 2021-06-27 10:15 | disposition home or self-care (01) | DRG 917 ==
LOC: ER 12:46 → 6 SOUTH 17:52 → ER 22:18
PROVIDERS: ADMIT Family Medicine; ATTEND Family Medicine
DX: T46.5X2A Poisoning by other antihypertensive drugs, intentional self-harm, initial encounter (principal); N17.0 Acute kidney failure with tubular necrosis; J98.11 Atelectasis; F20.0 Paranoid schizophrenia; N30.00 Acute cystitis without hematuria; A59.9 Trichomoniasis, unspecified; F10.20 Alcohol dependence, uncomplicated; F12.90 Cannabis use, unspecified, uncomplicated; F14.10 Cocaine abuse, uncomplicated; F17.210 Nicotine dependence, cigarettes, uncomplicated; G40.909 Epilepsy, unspecified, not intractable, without status epilepticus; G47.00 Insomnia, unspecified; I12.9 Hypertensive chronic kidney disease with stage 1 through stage 4 chronic kidney disease, or unspecified chronic kidney disease; N18.9 Chronic kidney disease, unspecified; Y09 Assault by unspecified means; Z79.890 Hormone replacement therapy; Z79.899 Other long term (current) drug therapy; Z82.49 Family history of ischemic heart disease and other diseases of the circulatory system; Z91.14 Patient's other noncompliance with medication regimen; Z91.19 Patient's noncompliance with other medical treatment and regimen; Z91.81 History of falling; I95.9 Hypotension, unspecified; Y92.89 Other specified places as the place of occurrence of the external cause; Z88.0 Allergy status to penicillin; Z88.8 Allergy status to other drugs, medicaments and biological substances
CPT/HCPCS: 36415; 70450; 71045; 80048; 80053; 80307; 81001; 82553; 83605; 83735; 84484; 85007; 85025; 85610; 85730; 87040; 87086; 93005; 96361; 96374; J0461; J1644; J7030; J7040; 99285-25; G0378